=== PATIENT | female | born 1950 | race Caucasian/White ===

== ENCOUNTER 2020-10-30 12:37 | Emergency (ER) | payer OTHER ==
--- OUTSIDE RECORDS SUMMARY | 2020-10-30 12:41 | XMS REPORT | Continuity of Care Document ---
:1950 Author Organization [facility] t Address [address] [place] [place] [address] Care Team Providers Name Role Phone Margaret LINARES, Gene Attending Clinician 1, Lab Attending Clinician Unavailable Payers Payer Name Policy Type Policy Number Effective Date Expiration Date S ource Problems This patient has no known problems. Allergies, Adverse Reactions, Alerts Allergy Allergy Status Severity Reaction(s) Onset Inactive Treating Comm ents Source Name Type Date Date Clinician Quinolon DA Active [facility] es 12-14 [place] 00:00: d 00 [facility] peanut FA Active [place] [facility] 12-14 [place] 00:00: d 00 [facility] grapefru FA Active [facility] it 12-14 [place] 00:00: d 00 [facility] ciproflo DA Active [facility] xacin 12-14 [place] 00:00: d 00 [facility] amoxicil DA Active [facility] raymundo 12-14 [place] 00:00: d 00 [facility] tea tree DA Active [facility] 12-14 [place] 00:00: d 00 [facility] strawber FA Active [facility] ry 12-14 [place] 00:[facility]: d [facility] red dye FA Active [facility] 12-14 [place] 00:00: d 00 [facility] yellow FA Active [facility] dye 12-14 [place] 00:00: d 00 [facility] pecan FA Active [place] [facility] nut 12-14 [place] 00:00: d 00 [facility] Medications This patient has no known medications. Procedures This patient has no known procedures. Encounters Start End Encounter Admission Attending Care Care Encounter Source Date/Time Date/Time Type Type Clinicians Facility Department ID 2019-02-27 2019-02-27 [facility] [id number] 10:33:52 23:59:00 Encounter Selwyn Duran [id number] [place] [id number] [place] [id number] 2019-02-27 2019-02-27 [employer] 1, Adc Lab [facility] [id number] 10:38:02 10:53:02 Visit Roger [id number] [place] [id number] [place] [id number] 2019-02-04 2019-02-04 [facility] [id number] 10:08:52 12:00:03 Visit Selwyn Duran [id number] [place] [id number] [facility] [phone] [facility] 092 Building Results Test Description Test Time Test Comments Results Result [facility] e Comments - CT NECK 2019-07-15 Name: CATE ROB W/CONTRAST 13:56:00 MANE COOK Dent : 1950 Age/S: 68 / F [address] Unit #: [id number] Loc: [place] [address] Phys: Ray Fierro III, MD Acct: [id number] Dis Date: Status: REG CLI PHONE #: [phone] Exam Date: 07/15/2019923 FAX #: Reason: NECK SWELLING EXAMS: CPT: [id number] CT NECK W/CONTRAST 42112 HISTORY: Neck swelling TECHNIQUE: Axial tomograms and neck were obtained after intravenous contrast.. One or more of the following dose reduction techniques were used: Automated exposure control, adjustment of the mA and/or kV according to patient size, and/or utilization of iterative reconstruction technique. Location: C3 FINDINGS: The visualized aerodigestive tract is within normal limits. No peritonsillar or parapharyngeal mass or fluid collection. The parotid glands and submandibular glands are unremarkable. Scattered small lymph nodes are demonstrated bilaterally without significant adenopathy. Postoperative changes and degenerative changes of the spine are noted. The visualized intracranial structures and lung apices show no acute abnormalities. Visualized orbits and paranasal sinuses demonstrate no acute abnormalities. IMPRESSION: 1. No soft tissue mass or fluid collection. No other acute abnormality identified. at 0975 Reported and signed by: Jose Juan Don M.D. CC: Ray Fierro III, MD Technologist:Ami Bae, RT(R)(CT); Kri CTDI: DLP: Trnscb Date/Time: 07/15/2019 (5065) [id number] Orig Print D/T: S: 07/15/2019 (4179) PAGE 1 Signed Report BLOOD UREA NITROGEN 2019-07-15 08:52:00 Test Item Value Reference Range Interpretation Comme nts BLOOD UREA NITROGEN (test code = BUN) 17 MG/DL 7-18 N [id number] 08:52:00 Test Item Value Reference Range Interpretation Comments CREATININE (test code = CREAT) 0.8 MG/DL 0.6-1.0 N
[2020-10-30] MEDS ORDERED: LEVALBUTEROL 1.25 MG/3 ML NEB ONE (13:40)
--- NOTE | 2020-10-30 14:20 | RAD REPORT ---
EXAM DESCRIPTION: Halie Single View10/30/2020 2:04 pm CLINICAL HISTORY: Cough COMPARISON: 2007 FINDINGS: The lungs appear clear of acute infiltrate. The heart is normal size IMPRESSION: No acute abnormalities displayed
[2020-10-30 14:50] LABS: SARS-COV-2 RT PCR NEGATIVE (NEGATIVE)
--- NOTE | 2020-10-30 15:54 | EDPHYS ---
Physician Documentation [facility] Name: Ryanne Jo Age: 70 yrs Sex: Female : 1950 Arrival Date: 10/30/2020 Time: 12:40 Bed 20 Private MD: Keven Mena V ED Physician Sotero Lala HPI: 10/30 13:05 This 70 yrs old Female presents to ER via Ambulatory with complaints of jmm Cough, Breathing Difficulty, Sore Throat, Ear Pain, Sinus Congestion. 13:05 The patient or guardian reports cough. Onset: The symptoms/episode began/occurred jmm gradually, 1 week(s) ago. Modifying factors: The symptoms are alleviated by nothing, the symptoms are aggravated by nothing. This is a 70 year old female with a history of htn, dm, hlp that presents to the ED with complaints of cough, congestion beginning approx 1 week ago. Symptoms not alleviated with azithromycin. Patient denies fever, but has had some episodes of shortness of breath. . Historical: - Allergies: 12:49 Amoxicillin; aa5 12:49 Cipro PO; aa5 12:49 Quinolones; aa5 - PMHx: 12:49 Hypertension; Diabetes - NIDDM; Hyperlipidemia; aa5 - PSHx: 12:49 ; Cholecystectomy; aa5 - Immunization history:: Client reports receiving the 2nd dose of the Covid vaccine, Date received: August 2020. - Social history:: Smoking status: Patient denies any tobacco usage or history of. ROS: 13:05 Constitutional: Positive for body aches. jmm 13:05 Respiratory: Positive for cough. 13:05 All other systems are negative. Exam: 13:05 Constitutional: This is a well developed, well nourished patient who is awake, alert, jmm and in no acute distress. Head/Face: atraumatic. Eyes: EOMI, no conjunctival erythema appreciated ENT: Moist Mucus Membranes Neck: Trachea midline, Supple Chest/axilla: Normal chest wall appearance and motion. Cardiovascular: Regular rate and rhythm. No edema appreciated Respiratory: Normal respirations, no respiratory distress appreciated Abdomen/GI: Non distended, soft Back: Normal ROM Skin: General appearance color normal MS/ Extremity: Moves all extremities, no obvious deformities appreciated, no edema noted to the lower extremities Neuro: Awake and alert, normal gait Psych: Behavior is normal, Mood is normal, Patient is cooperative and pleasant Vital Signs: 12:45 BP 154 / 72; Pulse 80; Resp 18 S; Temp 98.3(TE); Pulse Ox 98% on R/A; Weight 95.71 kg aa5 (R); Height 5 ft. 2 in. (157.48 cm) (R); 13:33 BP 139 / 60; Pulse 67; Resp 16; Pulse Ox 99% on R/A; zb 14:38 BP 149 / 74; Pulse 80; Resp 18; Pulse Ox 99% on R/A; zb 16:04 BP 150 / 64; Pulse 79; Resp 16; Pulse Ox 99% on R/A; zb 12:45 Body Mass Index 38.59 (95.71 kg, 157.48 cm) aa5 MDM: 13:05 Patient medically screened. genet 15:52 Data reviewed: vital signs, nurses notes. Counseling: I had a detailed discussion with eliane the patient and/or guardian regarding: the historical points, exam findings, and any diagnostic results supporting the discharge/admit diagnosis, lab results, radiology results, the need for outpatient follow up, to return to the emergency department if symptoms worsen or persist or if there are any questions or concerns that arise at home. ED course: Patient is alert and non toxic in appearance in the ED. No signs of resp distress. Patient advised to follow up with PCP and otherwise given strict return precautions. patient understood and agrees with the plan of care. . 10/30 13:10 Order name: Flu [facility] 10/30 13:13 Order name: Strep; Complete Time: 14:43 [facility] 10/30 14:37 Order name: Throat Culture [facility] 10/30 14:50 Order name: COVID-19/FLU A+B; Complete Time: 14:51 [facility] 10/30 13:10 Order name: Chest Single View XRAY; Complete Time: 14:43 [facility] Administered Medications: 13:27 Drug: Xopenex (levalbuterol) (3) 1.25 mg Route: Inhalation; zb 15:14 Follow up: Response: No adverse reaction; Marked relief of symptoms zb Disposition: 10/31 06:58 Co-signature as Attending Physician, Sotero Lala MD I agree with the assessment and [facility] plan of care. Disposition: 10/30/20 15:53 Discharged to Home. Impression: Acute bronchitis. - Condition is Stable. - Discharge Instructions: Acute Bronchitis, Adult. - Prescriptions for Prednisone 20 mg Oral Tablet - take 3 tablet by ORAL route once daily for 5 days; 15 tablet. Albuterol Sulfate 90 mcg/actuation - inhale 1-2 puff by INHALATION route every 4-6 hours; 1 Inhaler. - Work release form, Medication Reconciliation Form, Thank You Letter, Antibiotic Education, Prescription Opioid Use form. - Follow up: Keven Mena MD; When: 2 - 3 days; Reason: Recheck today's complaints, Continuance of care, Re-evaluation by your physician. Signatures: Dispatcher [employer] [facility] Sotero Lala MD MD cha Mickail, Joel, PA PA jmm Calderon, Audri, RN RN aa5 Guerita Andino RN RN zb Corrections: (The following items were deleted from the chart) 10/30 14:09 13:11 Influenza Screen (A ordered. [facility] 16:04 15:53 10/30/2020 15:53 Discharged to Home. Impression: Acute bronchitis. Condition is zb Stable. Forms are Medication Reconciliation Form, Thank You Letter, Antibiotic Education, Prescription Opioid Use. Follow up: Keven Mena; When: 2 - 3 days; Reason: Recheck today's complaints, Continuance of care, Re-evaluation by your physician. eliane
--- NOTE | 2020-10-30 15:54 | ER ---
Nurse's Notes [facility] Name: Ryanne Jo Age: 70 yrs Sex: Female : 1950 Arrival Date: 10/30/2020 Time: 12:40 Bed 20 Private MD: Keven Mena V Diagnosis: Acute bronchitis Presentation: 10/30 12:45 Chief complaint: Patient states: cough and congestion since Sunday. Pt reports SOB on aa5 exertion. Pt denies nausea/vomiting/diarrhea. Pt reports she was taking Zithromax per Dr. Mena but it was making her stomach hurt so she stopped taking it. Coronavirus screen: congestion, cough unrelated to allergies. Ebola Screen: Patient negative for fever greater than or equal to 101.5 degrees Fahrenheit, and additional compatible Ebola Virus Disease symptoms. Initial Sepsis Screen: Does the patient meet any 2 criteria? No. Patient's initial sepsis screen is negative. Does the patient have a suspected source of infection? Yes: Productive cough/pneumonia. Risk Assessment: Do you want to hurt yourself or someone else? Patient reports no desire to harm self or others. Onset of symptoms was October 2020. 12:45 Acuity: ALEIDA 3 aa5 12:45 Method Of Arrival: Ambulatory aa5 Triage Assessment: 13:32 General: Appears in no apparent distress. Respiratory: Onset: The symptoms/episode zb began/occurred Sunday , the patient has mild shortness of breath. Historical: - Allergies: 12:49 Amoxicillin; aa5 12:49 Cipro PO; aa5 12:49 Quinolones; aa5 - PMHx: 12:49 Hypertension; Diabetes - NIDDM; Hyperlipidemia; aa5 - PSHx: 12:49 ; Cholecystectomy; aa5 - Immunization history:: Client reports receiving the 2nd dose of the Covid vaccine, Date received: August 2020. - Social history:: Smoking status: Patient denies any tobacco usage or history of. Screenin:29 Abuse screen: Denies threats or abuse. Denies injuries from another. Nutritional zb screening: No deficits noted. Tuberculosis screening: No symptoms or risk factors identified. Fall Risk None identified. Assessment: 13:29 General: Appears in no apparent distress. Behavior is calm, cooperative, appropriate zb for age, Reports feeling ill for > 3 days, Denies fever, fatigue. Pain: Complains of pain in chest Pain does not radiate. Quality of pain is described as burning. Cardiovascular: Reports None Heart tones S1 S2 Capillary refill < 3 seconds Patient's skin is warm and dry. Rhythm is regular. Respiratory: Reports shortness of breath cough that is productive, hacking, persistent pain with cough. Respiratory: Airway is patent Respiratory effort is even, unlabored, Respiratory pattern is regular. GI: No deficits noted. Derm: Skin is intact, is healthy with good turgor, Skin is dry, Skin is pale, Skin temperature is warm. Musculoskeletal: Circulation, motion, and sensation intact. Range of motion: intact in all extremities. 14:38 Reassessment: Patient appears in no apparent distress at this time. Patient and/or zb family updated on plan of care and expected duration. Pain level reassessed. Patient is alert, oriented x 3, equal unlabored respirations, skin warm/dry/pink. neb tx completed. pain lying on bed awaiting results. 15:30 Reassessment: Patient appears in no apparent distress at this time. Patient and/or zb family updated on plan of care and expected duration. Pain level reassessed. Patient is alert, oriented x 3, equal unlabored respirations, skin warm/dry/pink. 16:02 Respiratory: Breath sounds are clear. zb 16:03 Reassessment: Patient appears in no apparent distress at this time. Patient and/or zb family updated on plan of care and expected duration. Pain level reassessed. Patient is alert, oriented x 3, equal unlabored respirations, skin warm/dry/pink. d/c instructions given no changes at this time. gait even and steady. Vital Signs: 12:45 BP 154 / 72; Pulse 80; Resp 18 S; Temp 98.3(TE); Pulse Ox 98% on R/A; Weight 95.71 kg aa5 (R); Height 5 ft. 2 in. (157.48 cm) (R); 13:33 BP 139 / 60; Pulse 67; Resp 16; Pulse Ox 99% on R/A; zb 14:38 BP 149 / 74; Pulse 80; Resp 18; Pulse Ox 99% on R/A; zb 16:04 BP 150 / 64; Pulse 79; Resp 16; Pulse Ox 99% on R/A; zb 12:45 Body Mass Index 38.59 (95.71 kg, 157.48 cm) aa5 ED Course: 12:40 Patient arrived in ED. am2 12:41 Keven Mena MD is Private Physician. am2 12:45 Arm band placed on. aa5 12:47 Triage completed. aa5 12:59 Jero Anaya PA is PHCP. jmm 12:59 Sotero Lala MD is Attending Physician. jmm 13:17 Guerita Andino, JAY is Primary Nurse. zb 13:32 Patient has correct armband on for positive identification. Placed in gown. Bed in low zb position. Call light in reach. Side rails up X 1. Pulse ox on. NIBP on. Door closed. Noise minimized. 14:04 Chest Single View XRAY In Process Unspecified. EDMS 15:53 Keven Mena MD is Referral Physician. jmm 16:02 No provider procedures requiring assistance completed. Patient did not have IV access zb during this emergency room visit. Administered Medications: 13:27 Drug: Xopenex (levalbuterol) (3) 1.25 mg Route: Inhalation; zb 15:14 Follow up: Response: No adverse reaction; Marked relief of symptoms zb Outcome: 15:53 Discharge ordered by . jmm 16:02 Discharged to home ambulatory. zb 16:02 Condition: stable 16:02 Discharge instructions given to patient, Instructed on discharge instructions, follow up and referral plans. medication usage, Demonstrated understanding of instructions, follow-up care, medications, Prescriptions given X 2. 16:04 Patient left the ED. zb Signatures: Dispatcher [employer] EDMS Jero Anaya PA PA Tiesha Hoffman, RN RN aa5 Gila Rivera am2 Guerita Andino, JAY RN zb Corrections: (The following items were deleted from the chart) 12:48 12:45 Chief complaint: Patient states: cough and congestion since Sunday. Pt reports aa5 SOB on exertion. Pt denies nausea/vomiting/diarrhea. aa5
[2020-10-30 16:27] VITALS: TEMP 98.3
[2020-10-30 16:28] VITALS: O2SAT 99
[2020-10-30 16:31] VITALS: BP 150/64
== END 2020-10-30 16:04 | disposition home or self-care (01) ==
LOC: ER 12:37
DX: J20.9 Acute bronchitis, unspecified (principal); I10 Essential (primary) hypertension; Z88.1 Allergy status to other antibiotic agents; Z88.5 Allergy status to narcotic agent
CPT/HCPCS: 87070; 87081; 0240U; 71045; 99284

== ENCOUNTER 2021-10-20 05:43 | Observation (INO) | payer OTHER ==
--- NOTE | 2021-10-17 14:53 | RAD REPORT ---
EXAM DESCRIPTION: RAD - Chest Pa And Lat (2 Views) - 10/17/2021 2:47 pm CLINICAL HISTORY: Pre op pending ankle surgery, hypertension COMPARISON: Two view chest 02/23/2021 TECHNIQUE: Frontal and lateral views of the chest were obtained. FINDINGS: The lungs are clear of acute finding. Chronic interstitial lung pattern matches comparison . No acute failure or volume overload suspected. Heart size is normal and central vasculature is wi thin normal limits. No pleural effusion or pneumothorax seen. No acute bone finding. Lower cervical fusion hardware noted. No aortic abnormality. IMPRESSION: No acute cardiopulmonary process. No significant change from comparison study.
[2021-10-17 15:30] LABS: Protime INR 1.04
--- NOTE | 2021-10-18 10:52 | EKG ---
Test Date: 2021-10-17 Test Time: 13:29:38 [employer]ter Orchid: FAYE MEASUREMENT RESULTS: Intervals: Rate: 64 PA: 174 QRSD: 82 QT: 428 QTc: 441 [place]: P: 38 PA: 174 QRS: -4 T: 38 INTERPRETIVE STATEMENTS: Normal sinus rhythm Inferior infarct, age undetermined Cannot rule out Anterior infarct, age undetermined Abnormal ECG Compared to ECG 08/10/2016 23:59:03 Myocardial infarct finding now present Sinus arrhythmia no longer present Electronically Signed On 10-18-21 10:50:21 CDT by Simon Monet
[2021-10-20] MEDS ORDERED: NA CHLORIDE 0.9% 1,000 ML ONE (05:54)
[2021-10-20] MEDS ORDERED: dexAMETHasone 10 MG/ML VIAL ONE (06:05)
[2021-10-20] MEDS ORDERED: FENTANYL CITR 100 MCG/2 ML ONE (06:05)
[2021-10-20] MEDS ORDERED: BUPIVACAINE 0.5% Inj,MDV 50 mL VIAL ONE (06:05)
[2021-10-20] MEDS ORDERED: BUPIVACAINE 0.25% PF 10 ML VIAL ONE (06:05)
[2021-10-20] MEDS ORDERED: LIDOCAINE 1% MPF 5 ML VIAL ONE (06:05)
[2021-10-20] MEDS ORDERED: MIDAZOLAM HCL 2 MG/2 ML INJ ONE (06:05)
[2021-10-20] MEDS ORDERED: CEFAZOLIN/SWI 2gm 0 GM/0 ML SYR ONE (07:12)
[2021-10-20] MEDS ORDERED: LIDOCAINE 2% MPF 5 ML VIAL ONE (07:25)
[2021-10-20] MEDS ORDERED: propofoL 200 MG/20 ML VIAL IV ONE (07:25)
[2021-10-20] MEDS ORDERED: BUPIVACAINE 0.5% PF 10 ML VIAL ONE (07:29)
[2021-10-20] MEDS ORDERED: ONDANSETRON 4 MG/2 ML VIAL ONE (07:53)
[2021-10-20] MEDS ORDERED: dexAMETHasone 4 MG/ML VIAL ONE (07:53)
[2021-10-20] MEDS ORDERED: CLINDAMYCIN INJ 600 MG in NA CHLORIDE 0.9% 50 ML IV ONE (08:00)
[2021-10-20] MEDS ORDERED: EPHEDRINE SULF 50 MG/ML VIAL ONE (08:21)
--- NOTE | 2021-10-20 09:05 | P.BOP ---
Preoperative diagnosis: left bimalleolar ankle fracture Postoperative diagnosis: ORIF left lateral malleolus fracture Primary procedure: closed treatment left posterior malleolus fracture Test Manager: NONE,NONE Estimated blood loss: 5 cc Specimen: none Findings: see dictation Anesthesia: General Complications: None Implants: Acumed distal fibular anatomic locking plate Fluids & blood products: per anesthesia record; TT: 48 mins @ 300 mmHg Transferred to: Recovery Room Condition: Good
[2021-10-20] MEDS ORDERED: DOCUSATE NA 100 MG CAP PO PRN (09:07)
[2021-10-20] MEDS ORDERED: TRAMADOL HCL 50 MG TAB PO PRN (09:07)
[2021-10-20] MEDS ORDERED: HYDROCODONE/APAP 7.5/325 MG TAB PO PRN (09:07)
[2021-10-20] MEDS ORDERED: ONDANSETRON 4 MG/2 ML VIAL IV PRN (09:07)
[2021-10-20 09:56] LABS: Hematocrit 43.5 % (36.0-45.0)
--- NOTE | 2021-10-20 09:58 | RAD REPORT ---
EXAM DESCRIPTION: RAD - Ankle Left 2 View - 10/20/2021 9:39 am CLINICAL HISTORY: Left ankle pain FINDINGS: Sideplate and screws affix a distal fibular fracture. The third screw from the top does not enter the sideplate. It is uncertain if it has become dislodged and should be correlated with surgical history. No dislocation
--- OUTSIDE RECORDS SUMMARY | 2021-10-20 10:23 | XMS REPORT | Continuity of Care Document ---
:1950 Author Organization [facility] t Address [address] [place] [address] Care Team Providers Name Role Phone Trina Allen Primary Care Physician Jonah Fierro Attending Clinician Unavailable Therapy, Covid Infusion Attending Clinician Unavailable Ana Rosa LINARES, H Attending Clinician Jonah OSEGUERA Attending Clinician Unavailable Doctor Unassigned, Name Attending Clinician Unavailable Juan RN, E Attending Clinician Unavailable TIANA Attending Clinician Unavailable Tiana ECHEVERRIA Attending Clinician Oliverio LINARES Attending Clinician Margaret LINARES, Gene Attending Clinician 1, Lab Attending Clinician Unavailable KNOW Admitting Clinician Unavailable Payers Payer Name Policy Type Policy Number Effective Date Expiration Date S ource Problems Condition Condition Condition Status Onset Resolution Last Treating Co mments Source Name Details Category Date Date Treatment Clinician Date No known No known Disease Unive rs active active ity of problems problems [facility] Allergies, Adverse Reactions, Alerts Allergy Allergy Status Severity Reaction(s) Onset Inactive Treating Comm ents Source Name Type Date Date Clinician TREE Food Active ITCHING 2019-0 Univers NUTS 8-20 ity of 00:00: [address] PENICILL DRUG Active Rash 2019-0 Univers IN INGREDI 8-20 ity of 00:00: [address] QUINOLON Drug Active Rash 2018-0 Univers ES Class 8-20 ity of 00:00: [place] 00 [facility] STRAWBER DRUG Active ITCHING 2019-0 Univers RY INGREDI 8-20 ity of 00:00: [place] 00 [facility] Ciproflo Propensi Active Rash 2019-0 Univer s xacin ty to 8-20 ity of adverse 00:00: [place] reaction 00 Medical s Branch Grapefru Propensi Active Itching 2019-0 Unive rs it ty to 8-20 ity of adverse 00:00: [place] reaction 00 Medical s Branch Peanut Propensi Active Itching 2019-0 Univers ty to 8-20 ity of adverse 00:00: [place] reaction 00 Medical s Branch Tree Propensi Active Itching 2019-0 Univers Nuts ty to 8-20 ity of adverse 00:00: [place] reaction 00 Medical s Branch Penicill Propensi Active Rash 2019-0 Univer s in ty to 8-20 ity of adverse 00:00: [place] reaction 00 Medical s Branch Quinolon Propensi Active Rash 2019-0 Univer s es ty to 8-20 ity of adverse 00:00: [place] reaction 00 Medical s Branch Strawber Propensi Active Itching 2019-0 Unive rs ry ty to 8-20 ity of adverse 00:00: [place] reaction 00 Medical s Branch CIPROFLO DRUG Active Rash 2019-0 Univers XACIN INGREDI 8-20 ity of 00:00: [place] 00 [facility] GRAPEFRU DRUG Active ITCHING 2019-0 Univers IT INGREDI 8-20 ity of 00:00: [place] 00 [facility] PEANUT DRUG Active ITCHING 2019-0 Univers INGREDI 8-20 ity of 00:00: [place] 00 [facility] Quinolon DA Active CA 0 [facility] es 12-14 [place] 00:00: d 00 [facility] [place] peanut FA Active MO [facility] 12-14 [place] 00:00: d 00 [facility] grapefru FA Active MO [facility] it 12-14 [place] 00:00: d 00 [facility] ciproflo DA Active CA [facility] xacin 12-14 [place] 00:00: d 00 [facility] amoxicil DA Active CA [facility] raymundo 12-14 [place] 00:00: d 00 [facility] tea tree DA Active MO [facility] 12-14 [place] 00:00: d 00 [facility] strawber FA Active MO [facility] ry 12-14 [place] 00:[facility]: d [facility] red dye FA Active U [facility] 6-29 [place] 00:00: d 00 [facility] yellow FA Active U [facility] dye 6-29 [place] 00:00: d 00 [facility] pecan FA Active MO [facility] nut 6-29 [place] 00:00: d 00 [facility] yellow FA Active U ITCHING, [facility] dye FEELS LIKE 6-29 [place] SKIN 00:00: d CRAWLING 00 [facility] pecan FA Active MO ITCHING, [facility] nut FEELS LIKE 6-29 [place] SKIN 00:00: d CRAWLING 00 [facility] Quinolon DA Active CA RED STREAKS; 2017 HC A es HOT FEELING; 6-29 [place] trisha SKIN CRAWLS 00:00: d 00 [facility] peanut FA Active MO LIP NUMBNESS [facility] 6-29 [place] 00:00: d 00 [facility] grapefru FA Active MO ITCHING, [facility] it FEELS LIKE 6-29 [place] SKIN 00:00: d CRAWLING [facility] ciproflo DA Active CA RED STREAKS; HC A xacin HOT FEELING; 6-29 [place] trisha SKIN CRAWLS 00:00: d 00 [facility] amoxicil DA Active CA RED STREAKS; HC A raymundo HOT FEELING; 6-29 [place]isha SKIN CRAWLS 00:00: d 00 [facility] tea tree DA Active MO ITCHING, [facility] FEELS LIKE 6-29 [place] SKIN 00:00: d CRAWLING [facility] strawber FA Active MO ITCHING, [facility] ry FEELS LIKE 6-29 [place] SKIN 00:00: d CRAWLING [facility] red dye FA Active U ITCHING, [facility] FEELS LIKE 6-29 [place] SKIN 00:00: d CRAWLING 00 [facility] Social History Social Habit Start Date Stop Date Quantity Comments Source Exposure to Yes University SARS-CoV-2 [facility] (event) Branch Alcohol intake 2021-06-16 2021-06-16 Ex-drinker University of 00:00:00 00:00:00 (finding) [facility] Tobacco use and 2019-02-04 2019-02-04 Never used Universit y of exposure 00:00:00 00:00:00 [facility] Sex Ass[birth year] [facility] y of 00:00:00 00:00:00 [facility] Smoking Status Start Date Stop Date Source Never smoker [facility] Medications Ordered Filled Start Stop Current Ordering Indication Dosage Frequency Signature Comments Components Source Medication Medication Date Date Medication? Clinician (SIG) Name Name amLODIPine Yes 5mg Take 5 mg Un otf 5 mg tablet 8-20 by mouth ity of 11:58: daily. [address] metFORMIN 2019- Yes 500mg Take 500 Uni vers 500 mg 8-20 mg by ity of tablet 11:58: mouth [place] [address] every 12 Medical (twelve) Branch hours. Omeprazole Yes Take by Uni vers 20 mg 8-20 mouth. ity of tablet 11:58: [address] Cetirizine Yes Take by Uni vers (ZYRTEC) 10 8-20 mouth. ity of mg capsule 11:58: [address] amLODIPine Yes 5mg Take 5 mg Un otf 5 mg tablet 8-20 by mouth ity of 11:58: daily. [address] metFORMIN Yes 500mg Take 500 Uni vers 500 mg 8-20 mg by ity of tablet 11:58: mouth [place] [address] every 12 Medical (twelve) Branch hours. Omeprazole Yes Take by Uni vers 20 mg 8-20 mouth. ity of tablet 11:58: [address] Cetirizine Yes Take by Uni vers (ZYRTEC) 10 8-20 mouth. ity of mg capsule 11:58: [address] amLODIPine Yes 5mg Take 5 mg Un otf 5 mg tablet 8-20 by mouth ity of 11:58: daily. [address] metFORMIN Yes 500mg Take 500 Uni vers 500 mg 8-20 mg by ity of tablet 11:58: mouth [place] [address] every 12 Medical (twelve) Branch hours. Omeprazole 2018- Yes Take by Uni vers 20 mg 8-20 mouth. ity of tablet 11:58: [address] Cetirizine Yes Take by Uni vers (ZYRTEC) 10 8-20 mouth. ity of mg capsule 11:58: [address] amLODIPine 2018- Yes 5mg Take 5 mg Un otf 5 mg tablet 8-20 by mouth ity of 11:58: daily. [place] [address] Medical Branch metFORMIN 2019- Yes 500mg Take 500 Uni vers 500 mg 8-20 mg by ity of tablet 11:58: mouth [place] [address] every 12 Medical (twelve) Branch hours. Omeprazole Yes Take by Uni vers 20 mg 8-20 mouth. ity of tablet 11:58: [address] Branch Cetirizine Yes Take by Uni vers (ZYRTEC) 10 8-20 mouth. ity of mg capsule 11:58: [address] Branch buPROPion Yes 150mg Take 150 Uni vers 75 mg 8-20 mg by ity of tablet 11:58: mouth. [address] Branch PARoxetine Yes 40mg Take 40 mg U nivers 40 mg 8-20 by mouth ity of tablet 11:58: daily. [address] Branch atorvastati Yes 20mg Take 20 mg Univers n 20 mg 8-20 by mouth ity of tablet 11:58: at [place] [address] bedtime. [facility] Branch spironolact Yes 25mg Take 25 mg Univers one 25 mg 8-20 by mouth ity of tablet 11:58: daily. [address] Branch buPROPion Yes 150mg Take 150 Uni vers 75 mg 8-20 mg by ity of tablet 11:58: mouth. [address] Branch PARoxetine Yes 40mg Take 40 mg U nivers 40 mg 8-20 by mouth ity of tablet 11:58: daily. [address] Branch atorvastati Yes 20mg Take 20 mg Univers n 20 mg 8-20 by mouth ity of tablet 11:58: at [place] [address] bedtime. [facility] Branch spironolact Yes 25mg Take 25 mg Univers one 25 mg 8-20 by mouth ity of tablet 11:58: daily. [address] Branch buPROPion Yes 150mg Take 150 Uni vers 75 mg 8-20 mg by ity of tablet 11:58: mouth. [address] Branch PARoxetine Yes 40mg Take 40 mg U nivers 40 mg 8-20 by mouth ity of tablet 11:58: daily. [address] Branch atorvastati Yes 20mg Take 20 mg Univers n 20 mg 8-20 by mouth ity of tablet 11:58: at [place] 08 bedtime. Medical Branch spironolact 2019-0 Yes 25mg Take 25 mg Univers one 25 mg 8-20 by mouth ity of tablet 11:58: daily. [place] [address] Medical Branch buPROPion 2019-0 Yes 150mg Take 150 Uni vers 75 mg 8-20 mg by ity of tablet 11:58: mouth. [place] [address] Medical Branch PARoxetine 2018-0 Yes 40mg Take 40 mg U nivers 40 mg 8-20 by mouth ity of tablet 11:58: daily. [place] [address] Medical Branch atorvastati 2019-0 Yes 20mg Take 20 mg Univers n 20 mg 8-20 by mouth ity of tablet 11:58: at [place] 08 bedtime. Medical Branch spironolact Yes 25mg Take 25 mg Univers one 25 mg 8-20 by mouth ity of tablet 11:58: daily. [place] [address] Medical Branch amitriptyli Yes [id number] 50mg Take 1 Univers ne 50 mg 8-20 tablet by ity of tablet 00:00: mouth at [place] 00 bedtime. Medical Branch erenumab-ao Yes 140mg inject 140 Univers oe (AIMOVIG 8-20 mg under ity of AUTOINJECTO 00:00: [place] R) 140 00 once every Medical mg/mL AtIn month. Branch amitriptyli Yes [id number] 50mg Take 1 Univers ne 50 mg 8-20 tablet by ity of tablet 00:00: mouth at [place] 00 bedtime. Medical Branch erenumab-ao Yes 140mg inject 140 Univers oe (AIMOVIG 8-20 mg under ity of AUTOINJECTO 00:00: the [place] R) 140 00 once every Medical mg/mL AtIn month. Branch amitriptyli 0 Yes [id number] 50mg Take 1 Univers ne 50 mg 8-20 tablet by ity of tablet 00:00: mouth at [place] 00 bedtime. Medical Branch erenumab-ao 0 Yes 140mg inject 140 Univers oe (AIMOVIG 8-20 mg under ity of AUTOINJECTO 00:00: the skin [place] R) 140 00 once every Medical mg/mL AtIn month. Branch amitriptyli 0 Yes [id number] 50mg Take 1 Univers ne 50 mg 8-20 tablet by ity of tablet 00:00: mouth at [place] 00 bedtime. Medical Branch erenumab-ao 2019-0 Yes 140mg inject 140 Univers oe (AIMOVIG 8-20 mg under ity of AUTOINJECTO 00:00: the [place] R) 140 00 once every Medical mg/mL AtIn month. Branch Immunizations Ordered Filled Immunization Date Status Comments [facility] e Immunization Name Name SARS-COV-2 COVID-19 2020-09-12 Completed Unive rsity of MODERNA VACCINE 00:00:00 [facility] SARS-COV-2 COVID-19 2020-09-12 Completed Unive rsity of MODERNA VACCINE 00:00:00 [facility] SARS-COV-2 COVID-19 2020-09-12 Completed Unive rsity of MODERNA VACCINE 00:00:00 [facility] SARS-COV-2 COVID-19 2020-09-12 Completed Unive rsity of MODERNA VACCINE 00:00:00 [facility] SARS-COV-2 COVID-19 2020-08-15 Completed Unive rsity of MODERNA VACCINE 00:00:00 [facility] SARS-COV-2 COVID-19 2020-08-15 Completed Unive rsity of MODERNA VACCINE 00:00:00 [facility] SARS-COV-2 COVID-19 2020-08-15 Completed Unive rsity of MODERNA VACCINE 00:00:00 [facility] SARS-COV-2 COVID-19 2020-08-15 Completed Unive rsity of MODERNA VACCINE 00:00:00 [facility] Vital Signs Vital Name Observation Time Observation Value Comments Source Body temperature 2021-06-20 19:42:00 36.56 [facility] Res[facility] rate 2021-06-20 19:42:00 18 /min [facility] Oxygen saturation in 2021-06-20 19:42:00 98 /min [facility] Arterial blood by [facility] Pulse oximetry Branch Systolic blood 2021-06-20 19:42:00 174 mm[Hg] Univer sity of pressure [facility] Diastolic blood 2021-06-20 19:42:00 81 mm[Hg] Unive rsity of pressure [facility] Heart rate 2021-06-20 19:42:00 78 /min Universi ty [facility] Systolic blood 2021-06-17 00:15:00 141 mm[Hg] Univer sity of pressure [facility] Diastolic blood 2021-06-17 00:15:00 80 mm[Hg] Unive rsity of pressure [facility] Heart rate 2021-06-17 00:11:00 88 /min Universi ty [facility] Body temperature 2021-06-17 00:11:00 36.67 Sadie [facility] ersity of [facility] Respiratory rate 2021-06-17 00:11:00 18 /min [facility] Body height 2021-06-17 00:11:00 154.9 cm [facility] Body weight 2021-06-17 00:11:00 93.441 kg [facility] BMI 2021-06-17 00:11:00 38.92 kg/m2 [facility] Oxygen saturation in 2021-06-17 00:11:00 98 /min [facility] Arterial blood by [facility] Pulse oximetry Branch Procedures Procedure Date / Time Performed Performing Clinician Sour e CONSENT/REFUSAL FOR 2021-06-20 06:01:00 Doctor Unassigned, No Un [facility] DIAGNOSIS AND Name Medical Branch TREATMENT Encounters Start End Encounter Admission Attending Care Care Encounter Source Date/Time Date/Time Type Type Clinicians Facility Department ID 2021-08-29 Outpatient STLMLC STLMLC [id number] [address] 09:33:04 [id number] Nanci zaldivar [facility] 2019-07-15 Inpatient FRANSISCO Calderon RADI [id number] [facility] 08:30:00 Ray [id number] [facility] 2021-06-20 2021-06-20 Nurse Therapy, Clc Covid Infusion [facility] [id number] Univers 13:30:00 14:30:00 Visit Breana Oseguera [facility] [id number] ity of [place] [id number] [id number] [facility] MEDICAL 053 Branch OFFICE BUILDING 2021-06-20 2021-06-20 Outpatient Louis OSEGUERA [facility] [id number] Univers 13:30:00 13:30:00 BREANA [id number] ity of [facility] 2021-06-20 2021-06-20 Outpatient R ANA ROSA [facility] [id number] Univers 13:30:00 13:30:00 BREANA ity [facility] 2021-06-20 2021-06-20 Orders Doctor KHAN [id number] Univers 00:00:00 00:00:00 Only Unassigned, VADIM [id number] ity of [place] [facility] [id number] Abraham as [phone] [facility] 009 Branch 2021-06-18 2021-06-18 Telephone ERIN Martinez [id number] Univers 00:00:00 00:00:00 Pina FIERRO [id number] it y of [facility] [id number] Abraham as [id number] [facility] 019 [place] 2021-06-16 2021-06-16 [facility] [id number] Univers 18:20:00 19:11:56 KASSIDY ity [facility] 2021-06-16 2021-06-16 Urgent Kassidy Montiel [facility] [id number] Univers 18:20:00 19:11:56 [facility] [id number] ity of [place] [id number] Abraham as PEDRO PABLO?BLEA [phone] [place] christa HALLEY [address] [place] [address] MEDICAL OFFICE BUILDING 2021-06-16 2021-06-16 Outpatient R [facility] [id number] Univers 18:20:00 18:20:00 [id number] ity of [facility] 2020-09-12 2020-09-12 Outpatient [facility] [id number] Univers 08:40:00 08:40:00 ity of [facility] 2020-08-15 2020-08-15 Outpatient [facility] [id number] Univers 08:15:00 08:15:00 ity [facility] 2019-07-09 2019-07-09 [facility] [id number] [facility] 08:30:00 08:30:00 Ray [id number] [facility] 2019-02-27 2019-02-27 [facility] [id number] 10:33:52 23:59:00 Encounter Selwyn Gonzalez [id number] [place] [id number] [place] [id number] 2019-02-27 2019-02-27 [employer] 1, Adc Lab [facility] [id number] 10:38:02 10:53:02 Visit Roger [id number] [place] [id number] [place] [id number] [id number] 2019-02-04 2019-02-04 Office Margaret [facility] [id number] 10:08:52 12:00:03 Visit Selwyn Gonzalez [id number] [place] [id number] Professio [phone] [facility] 092 Building Results Test Description Test Time Test Comments Results Result [facility] e Comments - CT NECK 2019-07-15 Name: CATE ROB W[facility]CONTRAST 13:56:[facility] 1950 Age/S: 68 / F [id number] [address] [place] Unit #: [id number] Loc: [place] [address] Phys: Ray Fierro III, MD Acct: [id number] Dis Date: Status: REG CLI PHONE #: [phone] Exam Date: 07/15/2019923 FAX #: Reason: NECK SWELLING EXAMS: CPT: [id number] CT NECK W/CONTRAST 96401 HISTORY: Neck swelling TECHNIQUE: Axial tomograms and [...] collection. No other acute abnormality identified. at 6181 Reported and signed by: Jose Juan Don M.D. CC: Ray Fierro III, MD Technologist:Ami Bae, RT(R)(CT); [facility] CTDI: DLP: Trnscb Date/Time: 07/15/2019 (1115) [email or web address] Orig Print D/T: S: 07/15/2019 (0451) PAGE 1 Signed Report BLOOD UREA NITROGEN 2019-07-15 08:52:00 Test Item Value Reference Range Interpretation Comme nts BLOOD UREA NITROGEN (test code = BUN) 17 MG/DL 7-18 N [id number] 08:52:00 Test Item Value Reference Range Interpretation Comments CREATININE (test code = CREAT) 0.8 MG/DL 0.6-1.0 N
[2021-10-20 13:22] VITALS: BMI 5624.0
[2021-10-20] MEDS: TOPIRAMATE 25 MG TAB PO SCH ×2 (15:05→21:54)
--- NOTE | 2021-10-20 15:23 | RAD REPORT ---
EXAM DESCRIPTION: RAD - Fluoroscopy <1 Hour - 10/20/2021 2:10 pm CLINICAL HISTORY: ORIF COMPARISON: Ankle Left 2 View dated 10/20/2021 FINDINGS/IMPRESSION: Thirteen intraoperative fluoroscopic images were submitted showing ORIF of the distal fibula. No hardware complications are identified. Alignment is unremarkable.
[2021-10-20] MEDS ORDERED: PNEUMOCOCCAL VACCINE 0.5 ML IMVAC ONE (17:00)
[2021-10-20] MEDS ORDERED: CLINDAMYCIN INJ 600 MG in NA CHLORIDE 0.9% 50 ML IV SCH (17:00)
[2021-10-20] MEDS: CLINDAMYCIN 600MG/D5W 600 MG/50 ML BAG IV SCH (18:12)
[2021-10-20] MEDS: METFORMIN HCL 500 MG TAB PO SCH (18:13)
[2021-10-20] MEDS ORDERED: ATORVASTATIN 20 MG TAB PO SCH (21:00)
[2021-10-21] MEDS: CLINDAMYCIN 600MG/D5W 600 MG/50 ML BAG IV SCH ×2 (01:31→08:52)
[2021-10-21] MEDS: TOPIRAMATE 25 MG TAB PO SCH (08:52)
[2021-10-21] MEDS: METFORMIN HCL 500 MG TAB PO SCH (08:53)
[2021-10-21 08:54] VITALS: BP 145/56
[2021-10-21] MEDS ORDERED: DOXYCYCLINE MONOHYDRATE 50 MG PO SCH (09:00)
[2021-10-21] MEDS ORDERED: ASPIRIN EC 81 MG TAB PO SCH (09:00)
[2021-10-21] MEDS ORDERED: SPIRONOLACTONE 25 MG TABLET PO SCH (09:00)
[2021-10-21] MEDS ORDERED: PARoxetine HCL 10 MG TAB PO SCH (09:00)
[2021-10-21] MEDS ORDERED: CETIRIZINE HCL 5 MG TABLET PO SCH (09:00)
[2021-10-21] MEDS ORDERED: MONTELUKAST 10 MG TAB PO SCH (09:00)
[2021-10-21] MEDS ORDERED: PANTOPRAZOLE 40MG TABLET PO SCH (09:00)
[2021-10-21] MEDS ORDERED: AMLODIPINE 5 MG TAB PO SCH (09:00)
[2021-10-21 09:22] VITALS: TEMP 97.1
[2021-10-21 10:00] VITALS: O2SAT 97
--- NOTE | 2021-10-21 10:13 | P.DS ---
Admission Date: 10/20/21 Discharge Date: 10/21/21 Disposition: DC HOME/HOME HEALTH CARE Discharge Condition: GOOD Reason for Admission: s/p ORIF left lateral malleolus Procedures: ORIF left lateral malleolus on 10/20/2021 Brief History of Present Illness: Ryanne is a 71 yo female s/p ORIF left lateral malleolus on 10/20/2021 Hospital Course: Patient was admitted to the floor in stable condition. Her pain was controlled and she was discharged on 10/21/2021 in stable condition. She will be NWB on her LLE. PT will be consulted while at home to aid with mobilization. Vital Signs/Physical Exam: Temp Pulse Resp BP Pulse Ox 97.1 F 75 16 145/56 H 100 10/21/21 08:00 10/21/21 08:54 10/21/21 08:00 10/21/21 08:54 10/21/21 08:00 Laboratory Data at Discharge: Hgb 14.2 g/dL (12.0-15.0) 10/20/21 09:32 Hct 43.5 % (36.0-45.0) 10/20/21 09:32 PT 11.4 SECONDS (9.5-12.5) 10/17/21 14:55 INR 1.04 10/17/21 14:55 APTT 41.1 SECONDS (24.3-36.9) H 10/17/21 14:55 Home Medications: Aloe Vera 25 mg PO DAILY 10/17/21 Amlodipine Besylate 5 mg PO DAILY 10/17/21 Ascorbic Acid [Vitamin C*] 500 mg PO DAILY 10/17/21 Aspirin [Aspirin EC 81 MG] 81 mg PO DAILY 10/17/21 Atorvastatin Calcium [Lipitor*] 20 mg PO BEDTIME 10/17/21 Biotin 10,000 mcg PO DAILY 10/17/21 Calcium Crb,Cit/D3/Min34/Kaylyn [Citracal Plus Bone Density Tab] 1 each PO DAILY 10/17/21 Cetirizine HCl [Zyrtec] 10 mg PO BID 10/17/21 Cranberry 500 mg PO DAILY 10/17/21 Doxycycline Monohydrate 50 mg PO DAILY 10/17/21 Lactobacillus Acidophilus [Acidophilus Probiotic] 1 each PO DAILY 10/17/21 Metformin HCl [Glucophage*] 500 mg PO BID 10/17/21 Montelukast [Singulair*] 10 mg PO DAILY 10/17/21 PARoxetine HCL [Paroxetine HCl] 20 mg PO DAILY 10/17/21 Pantoprazole [Protonix Tab*] 40 mg PO DAILY 10/17/21 Spironolactone [Aldactone*] 25 mg PO DAILY 10/17/21 Topiramate 50 mg PO TID 10/17/21 Ubidecarenone [Co Q-10] 100 mg PO DAILY 10/17/21 Vit A,C & E/Lutein/Minerals [Ocuvite Tablet] 1 tab PO DAILY 10/17/21 Hydrocodone 7.5/APAP 325 [[place] 7.5/325 mg*] 1 tab PO Q4H PRN tab 10/21/21 Physician Discharge Instructions: keep splint clean, dry, intact; keep LLE elevated on 2 pillows; f/u with Dr Hoover in 2 weeks for suture removal; remain NWB on LLE at all times Diet: ADA Activity: Non-weight bearing (LLE)
--- NOTE | 2021-10-27 22:36 | OP ---
Date of Procedure: 10/20/2021 Surgeon: Renaldo Hoover MD Preoperative Diagnosis: Left bimalleolar ankle fracture. Postoperative Diagnosis: Left bimalleolar ankle fracture. Procedures Performed: Open reduction internal fixation of left lateral malleolus fracture with post treatment of posterior malleolus fracture. Anesthesia: General. Fluids: Per Anesthesia record. Ebl: 5 cc. Complications: None. Implants: An Acumed distal fibular anatomic locking plate. Tourniquet Time: 40 minutes at 300 mmHg. Indication For Procedure: Ryanne is a 71-year-old female who presented to my clinic with signs, sympto ms and x-ray findings consistent with a left bimalleolar ankle fracture. There was displacement on [facility] fracture. Given the displaced and unstable fracture pattern, I recommended operative treatment. I discussed with the patient at length risks and benefits associated with operative and nonoperative treatment. She expressed understanding and elected to proceed with operative treatment. Description Of Procedure: After informed consent was obtained, the patient was identified in the pre operative holding area. The left lower extremity was marked. The patient was then brought back to [facility] operating room, transferred to the operative table in supine fashion, and placed under general LMA anesthesia. The left lower extremity was then prepped and draped in usual sterile fashion. A time- out was initiated. The correct patient and procedure were confirmed and identified. The patient did receive her preoperative prophylactic antibiotics. The left lower extremity was exsanguinated using an Esmarch and tourniquet was inflated to 300 mmHg. Approximately, a 12 cm longitudinal incision wa s made centered over the distal fibula. Dissection was then taken down to the distal fibula using Me matamorosenbaum and an elevator. The fracture was identified and it was held reduced using a pointed reduct ion clamp and adequate reduction was noted on fluoroscopy. A single 3.5 cortical screw was then plac ed in the lag fashion across the fracture with compression noted at the fracture site. The Acumed di stal fibular anatomic locking plate was then placed on the distal fibula for further fixation. Once the proper position was confirmed with fluoroscopy, a single cancellous screw was placed distally to aid with fixation of the plate to the bone. This was followed by placement of distal fibular locking screws in unicortical fashion. There was good overall alignment of the fracture as well as maintena nce of reduction. The proximal screws were then placed in bicortical fashion with overall good align ment of the fracture as well as the hardware. Both AP and lateral images were taken to confirm reduc tion and placement of the hardware. Live fluoroscopy was then used to perform Cotton test and no ins tability of the syndesmosis was noted. The wound was then irrigated thoroughly with normal saline. Subcutaneous tissue was approximated using a 2-0 Vicryl. Skin was approximated using a 3-0 nylon. S terile dressings were applied. The patient was placed in a posterior and stirrup splint and was awak ened and transferred to PACU in stable condition. Postoperative Plan: The patient will be nonweightbearing on her left lower extremity. [place] apy will be consulted to aid with mobilization. The patient will be discharged tomorrow after demons trating safe mobilization. CV/MODL Voice ID: [id number] Report ID: [id number]
== END 2021-10-21 11:00 | disposition home health service (06) ==
LOC: OR 05:43 → 2ND 09:07
PROVIDERS: ADMIT Orthopaedic Surgery Sports Medicine; ATTEND Orthopaedic Surgery Sports Medicine
PROC: 0QSH04Z Reposition Left Tibia with Internal Fixation Device, Open Approach (ICD-10-PCS; 2021-10-20)
PROC: 0QSK04Z Reposition Left Fibula with Internal Fixation Device, Open Approach (ICD-10-PCS; principal; 2021-10-20 07:30)
DX: S82.842A Displaced bimalleolar fracture of left lower leg, initial encounter for closed fracture (principal); E11.9 Type 2 diabetes mellitus without complications; I10 Essential (primary) hypertension; E78.00 Pure hypercholesterolemia, unspecified; J45.909 Unspecified asthma, uncomplicated; M19.90 Unspecified osteoarthritis, unspecified site; K21.9 Gastro-esophageal reflux disease without esophagitis; G43.909 Migraine, unspecified, not intractable, without status migrainosus; F32.A Depression, unspecified; F41.9 Anxiety disorder, unspecified; J30.2 Other seasonal allergic rhinitis; Z20.822 Contact with and (suspected) exposure to COVID-19; Z79.82 Long term (current) use of aspirin; Z79.84 Long term (current) use of oral hypoglycemic drugs; Z79.899 Other long term (current) drug therapy; Z88.1 Allergy status to other antibiotic agents; Z88.0 Allergy status to penicillin; Z88.8 Allergy status to other drugs, medicaments and biological substances; Z91.040 Latex allergy status; Z83.3 Family history of diabetes mellitus; Z80.9 Family history of malignant neoplasm, unspecified; Z82.49 Family history of ischemic heart disease and other diseases of the circulatory system; Z83.2 Family history of diseases of the blood and blood-forming organs and certain disorders involving the immune mechanism
CPT/HCPCS: 27814; 93005; 36415 ×2; 85610; 82947 ×6; 85730; 85018; 85014; 71046; 73600; 97110 ×2; 97116; 97161; 97530; 94010; U0003; J2704; J1100 ×2; J2250; J3010; J7030; J2405; G0379; G0378 ×2; 76000; J0690

== ENCOUNTER 2022-01-08 19:23 | Emergency (ER) | payer OTHER ==
--- OUTSIDE RECORDS SUMMARY | 2022-01-08 19:27 | XMS REPORT | Continuity of Care Document ---
:1950 Author Organization [facility] t Address [address] [place] [address] Care Team Providers Name Role Phone Trina Alejandro Primary Care Physician Therapy, Covid Infusion Attending Clinician Unavailable Ana Rosa LINARES, H Attending Clinician Jonah OSEGUERA Attending Clinician Unavailable Doctor Unassigned, Name Attending Clinician Unavailable Juan THOMPSON, E Attending Clinician Unavailable TIANA Attending Clinician Unavailable Tiana ECHEVERRIA Attending Clinician Oliverio LINARES Attending Clinician Jonah Fierro Attending Clinician Unavailable Margaret LINARES, Gene Attending Clinician 1, Lab Attending Clinician Unavailable KNOW Admitting Clinician Unavailable Payers Payer Name Policy Type Policy Number Effective Date Expiration Date S ource Problems Condition Condition Condition Status Onset Resolution Last Treating Co mments Source Name Details Category Date Date Treatment Clinician Date No known No known Disease Unive rs active active ity of problems problems [facility] Allergies, Adverse Reactions, Alerts Allergy Allergy Status Severity Reaction(s) Onset Inactive Treating Comm ents Source Name Type Date Date Clinician GRAPEFRU DRUG Active ITCHING 2019-0 Univers IT INGREDI 8-20 ity of 00:00: [address] PEANUT DRUG Active ITCHING 2019-0 Univers INGREDI 8-20 ity of 00:00: [place] 00 [facility] TREE Food Active ITCHING 2019-0 Univers NUTS 8-20 ity of 00:00: [place] 00 [facility] PENICILL DRUG Active Rash 2019-0 Univers IN INGREDI 8-20 ity of 00:00: [place] 00 [facility] QUINOLON Drug Active Rash 2019-0 Univers ES Class 8-20 ity of 00:00: [...] ity of 00:00: [place] 00 [facility] grapefru FA Active MO 0 [facility] it 6- [place] 00:00: d 00 [facility] ciproflo DA Active OR 0 [facility] xacin 6- [place] 00:00: d 00 [facility] [place] amoxicil DA Active OR 2016-0 [facility] raymundo 6- [place] 00:00: d 00 [facility] [place] tea tree DA Active MO 2016-0 [facility] 6-29 [place] 00:00: d 00 [facility] strawber FA Active MO [facility] ry 6- [place] 00:00: d 00 [facility] red dye FA Active U [facility] 6 [place] 00:00: d 00 [facility] [place] yellow FA Active U [facility] dye 6-29 [place] 00:00: d 00 [facility] pecan FA Active MO [facility] nut 6-29 [place] 00:00: d 00 [facility] yellow FA Active U ITCHING, [facility] dye FEELS LIKE 6-29 [place] SKIN 00:00: d CRAWLING 00 [facility] pecan FA Active MO ITCHING, [facility] nut FEELS LIKE 6-29 [place] SKIN 00:00: d CRAWLING 00 [facility] Quinolon DA Active OR RED STREAKS; HC A es HOT FEELING; 6-29 [place] trisha SKIN CRAWLS 00:00: d 00 [facility] peanut FA Active MO LIP NUMBNESS [facility] 6-29 [place] 00:00: d 00 [facility] grapefru FA Active MO ITCHING, [facility] it FEELS LIKE 6-29 [place] SKIN 00:00: d CRAWLING 00 [facility] ciproflo DA Active OR RED STREAKS; HC A xacin HOT FEELING; 6-29 [place] trisha SKIN CRAWLS 00:00: d 00 [facility] amoxicil DA Active OR RED STREAKS; HC A raymundo HOT FEELING; 6-29 [place] trisha SKIN CRAWLS 00:00: d 00 [facility] tea tree DA Active MO ITCHING, [facility] FEELS LIKE 6-29 [place] SKIN 00:00: d CRAWLING 00 [facility] strawber FA Active MO ITCHING, [facility] ry FEELS LIKE 6-29 [place] SKIN 00:00: d CRAWLING [facility] [place] red dye FA Active U ITCHING, [facility] FEELS LIKE 6-29 [place] SKIN 00:00: d CRAWLING 00 [facility] Quinolon DA Active OR [facility] es 6-29 [place] 00:00: d 00 [facility] peanut FA Active MO [facility] 6-29 [place] 00:00: d 00 [facility] [place] Social History Social Habit Start Date Stop Date Quantity Comments Source Exposure to Yes University SARS-CoV-2 [facility] (event) Branch Alcohol intake 2021-06-16 2021-06-16 Ex-drinker University of 00:00:00 00:00:00 (finding) [place] [facility] Tobacco use and 2019-02-04 2019-02-04 Never used Universit y of exposure 00:00:00 00:00:00 [facility] Sex Ass[birth year] Universit y of 00:00:00 00:00:00 [facility] Smoking Status Start Date Stop Date Source Never smoker [facility] Medications Ordered Filled Start Stop Current Ordering Indication Dosage Frequency Signature Comments Components Source Medication Medication Date Date Medication? Clinician (SIG) Name Name amLODIPine 2019- Yes 5mg Take 5 mg Un otf 5 mg tablet 8-20 by mouth ity of 11:58: daily. [address] metFORMIN 2019- Yes 500mg Take 500 Uni vers 500 mg 8-20 mg by ity of tablet 11:58: mouth [place] [address] every 12 Medical (twelve) Branch hours. Omeprazole 2019- Yes Take by Uni vers 20 mg 8-20 mouth. ity of tablet 11:58: [address] Cetirizine Yes Take by Uni vers (ZYRTEC) 10 8-20 mouth. ity of mg capsule 11:58: [address] amLODIPine 2019- Yes 5mg Take 5 mg Un otf 5 mg tablet 8-20 by mouth ity of 11:58: daily. [address] metFORMIN 2019- Yes 500mg Take 500 Uni vers 500 mg 8-20 mg by ity of tablet 11:58: mouth [place] [address] every 12 Medical (twelve) Branch hours. Omeprazole 2018- Yes Take by Uni vers 20 mg 8-20 mouth. ity of tablet 11:58: [address] Cetirizine 2018- Yes Take by Uni vers (ZYRTEC) 10 8-20 mouth. ity of mg capsule 11:58: [address] amLODIPine 2019- Yes 5mg Take 5 mg Un otf 5 mg tablet 8-20 by mouth ity of 11:58: daily. [address] metFORMIN 2019-0 Yes 500mg Take 500 Uni vers 500 mg 8-20 mg by ity of tablet 11:58: mouth [address] 12 Medical (twelve) Branch hours. Omeprazole 2019-0 Yes Take by Uni vers 20 mg 8-20 mouth. ity of tablet 11:58: [address] Cetirizine 2019- Yes Take by Uni vers (ZYRTEC) 10 8-20 mouth. ity of mg capsule 11:58: [address] amLODIPine 2019 Yes 5mg Take 5 mg Un otf 5 mg tablet 8-20 by mouth ity of 11:58: daily. [address] Branch metFORMIN 2019-0 Yes 500mg Take 500 Uni vers 500 mg 8-20 mg by ity of tablet 11:58: mouth [place] [address] every 12 Medical (twelve) Branch hours. Omeprazole 2019 Yes Take by Uni vers 20 mg 8-20 mouth. ity of tablet 11:58: [address] Branch Cetirizine 0 Yes Take by Uni vers (ZYRTEC) 10 8-20 mouth. ity of mg capsule 11:58: [address] Branch buPROPion Yes 150mg Take 150 Uni vers 75 mg 8-20 mg by ity of tablet 11:58: mouth. [address] PARoxetine Yes 40mg Take 40 mg U nivers 40 mg 8-20 by mouth ity of tablet 11:58: daily. [address] atorvastati Yes 20mg Take 20 mg Univers n 20 mg 8-20 by mouth ity of tablet 11:58: at [place] [address] bedtime. [facility] Branch spironolact Yes 25mg Take 25 mg Univers one 25 mg 8-20 by mouth ity of tablet 11:58: daily. [address] buPROPion Yes 150mg Take 150 Uni vers 75 mg 8-20 mg by ity of tablet 11:58: mouth. [address] PARoxetine Yes 40mg Take 40 mg U nivers 40 mg 8-20 by mouth ity of tablet 11:58: daily. [address] Branch atorvastati Yes 20mg Take 20 mg Univers n 20 mg 8-20 by mouth ity of tablet 11:58: at [place] [address] bedtime. [facility] Branch spironolact Yes 25mg Take 25 mg Univers one 25 mg 8-20 by mouth ity of tablet 11:58: daily. [address] buPROPion 0 Yes 150mg Take 150 Uni vers 75 mg 8-20 mg by ity of tablet 11:58: mouth. [address] PARoxetine Yes 40mg Take 40 mg U nivers 40 mg 8-20 by mouth ity of tablet 11:58: daily. [place] 08 [facility] Branch atorvastati Yes 20mg Take 20 mg Univers n 20 mg 8-20 by mouth ity of tablet 11:58: at [place] 08 bedtime. Medical Branch spironolact Yes 25mg Take 25 mg Univers one 25 mg 8-20 by mouth ity of tablet 11:58: daily. Medical Branch buPROPion Yes 150mg Take 150 Uni vers 75 mg 8-20 mg by ity of tablet 11:58: mouth. Medical Branch PARoxetine Yes 40mg Take 40 mg U nivers 40 mg 8-20 by mouth ity of tablet 11:58: daily. Medical Branch atorvastati Yes 20mg Take 20 mg Univers n 20 mg 8-20 by mouth ity of tablet 11:58: at [place] 08 bedtime. Medical Branch spironolact Yes 25mg Take 25 mg Univers one 25 mg 8-20 by mouth ity of tablet 11:58: daily. Medical Branch amitriptyli Yes [id number] 50mg Take 1 Univers ne 50 mg 8-20 tablet by ity of tablet 00:00: mouth at [place] 00 bedtime. Medical Branch erenumab-ao Yes 140mg inject 140 Univers oe (AIMOVIG 8-20 mg under ity of AUTOINJECTO 00:00: the [place] R) 140 00 once every Medical mg/mL AtIn month. Branch amitriptyli Yes [id number] 50mg Take 1 Univers ne 50 mg 8-20 tablet by ity of tablet 00:00: mouth at [place] 00 bedtime. Medical Branch erenumab-ao Yes 140mg inject 140 Univers oe (AIMOVIG 8-20 mg under ity of AUTOINJECTO 00:00: the skin [place] R) 140 00 once every Medical mg/mL AtIn month. Branch amitriptyli Yes [id number] 50mg Take 1 Univers ne 50 mg 8-20 tablet by ity of tablet 00:00: mouth at [place] 00 bedtime. Medical Branch erenumab-ao Yes 140mg inject 140 Univers oe (AIMOVIG 8-20 mg under ity of AUTOINJECTO 00:00: the skin [place] R) 140 00 once every Medical mg/mL AtIn month. Branch amitriptyli 2018- Yes [id number] 50mg Take 1 Univers ne 50 mg 8-20 tablet by ity of tablet 00:00: mouth at [place] 00 bedtime. Medical Branch erenumab-ao Yes 140mg inject 140 Univers oe (AIMOVIG 8-20 mg under ity of AUTOINJECTO 00:00: the [place] R) 140 00 once every Medical mg/mL AtIn month. Branch Immunizations Ordered Filled Immunization Date Status Comments [facility] Immunization Name Name SARS-COV-2 COVID-19 2020-09-12 Completed Unive rsity of MODERNA VACCINE 00:00:00 [facility] SARS-COV-2 COVID-19 2020-09-12 Completed Unive rsity of MODERNA VACCINE 00:00:00 [facility] SARS-COV-2 COVID-19 2020-09-12 Completed Unive rsity of MODERNA VACCINE 00:00:00 [facility] SARS-COV-2 COVID-19 2020-09-12 Completed Unive rsity of MODERNA VACCINE 00:00:00 [facility] SARS-COV-2 COVID-19 2020-08-15 Completed Unive rsity of MODERNA VACCINE 00:00:00 [facility] SARS-COV-2 COVID-19 2020-08-15 Completed Unive rsity of MODERNA VACCINE 00:00:00 [facility] SARS-COV-2 COVID-19 2020-08-15 Completed Unive rsity of MODERNA VACCINE 00:00:00 [facility] SARS-COV-2 COVID-19 2020-08-15 Completed Unive rsity of MODERNA VACCINE 00:00:00 [facility] Vital Signs Vital Name Observation Time Observation Value Comments Source Body temperature 2021-06-20 19:42:00 36.56 [facility] Respiratory rate 2021-06-20 19:42:00 18 /min [facility] Oxygen saturation in 2021-06-20 19:42:00 98 /min [facility] Arterial blood by [facility] Pulse oximetry Branch Systolic blood 2021-06-20 19:42:00 174 mm[Hg] [facility] sity of pressure [facility] Diastolic blood 2021-06-20 19:42:00 81 mm[Hg] Unive rsity of pressure [facility] Heart rate 2021-06-20 19:42:00 78 /min Universi ty [facility] Systolic blood 2021-06-17 00:15:00 141 mm[Hg] Univer sity of pressure [facility] Diastolic blood 2021-06-17 00:15:00 80 mm[Hg] Unive rsity of pressure [facility] Heart rate 2021-06-17 00:11:00 88 /[facility] Body [facility] 2021-06-17 00:11:00 36.67 [facility] Respiratory rate 2021-06-17 00:11:00 18 /min [facility] Body height 2021-06-17 00:11:00 154.9 cm [facility] Body weight 2021-06-17 00:11:00 93.441 kg [facility] BMI 2021-06-17 00:11:00 38.92 kg/m2 [facility] Oxygen saturation in 2021-06-17 00:11:00 98 /min [facility] Arterial blood by [facility] Pulse oximetry Branch Procedures Procedure Date / Time Performed Performing Clinician [facility] CONSENT/REFUSAL FOR 2021-06-20 06:01:00 Doctor Unassigned, No Un [facility] DIAGNOSIS AND Name Medical Branch TREATMENT Encounters Start End Encounter Admission Attending Care Care Encounter Source Date/Time Date/Time Type Type Clinicians Facility Department ID 2021-08-29 [facility] [id number] Common 09:33:04 [id number] [facility] 2021-06-20 2021-06-20 Nurse Therapy, Clc Covid Infusion [facility] [id number] Univers 13:30:00 14:30:00 Visit Breana Oseguera [facility] [id number] ity of [place] [id number] [facility] daryn [place] [phone] [facility] MEDICAL 053 Branch OFFICE BUILDING 2021-06-20 2021-06-20 Outpatient R ANA [facility] [id number] Univers 13:30:00 13:30:00 BREANA [id number] ity [facility] 2021-06-20 2021-06-20 Outpatient [address] [facility] [id number] Univers 13:30:00 13:30:00 BREANA ity [facility] 2021-06-20 2021-06-20 Orders Doctor KHAN [id number] Univers 00:00:00 00:00:00 Only Unassigned, VADIM [id number] ity of [place] [facility] [id number] Abraham as [id number] [facility] 009 Branch 2021-06-18 2021-06-18 Telephone ERIN Martinez [id number] Univers 00:00:00 00:00:00 Pina Farris VADIM [id number] it y of [facility] 4.2.7.2.686 Abraham as [id number] [facility] 019 [place] 2021-06-16 2021-06-16 [facility] [id number] Univers 18:20:00 19:11:56 KASSIDY ity [facility] 2021-06-16 2021-06-16 Urgent Kassidy Balbuena [facility] [id number] Univers 18:20:00 19:11:56 [facility] [id number] ity of [place] [id number] Abraham as PEDRO PABLO?BLEA [phone] [address] MEDICAL OFFICE BUILDING 2021-06-16 2021-06-[address] [facility] [id number] Univers 18:20:00 18:20:00 [id number] ity of [facility] 2020-09-12 2020-09-[address] [facility] [id number] Univers 08:40:00 08:40:00 ity of [facility] 2020-08-15 2020-08-[address] [facility] [id number] Univers 08:15:00 08:15:00 ity of [facility] 2019-07-15 2019-07-09 [facility] [id number] [facility] 08:30:00 08:30:00 Ray Rodriguez [facility] 2019-02-27 2019-02-27 Hospital Margaret [facility] [id number] 10:33:52 23:59:00 Encounter Selwyn Duran [id number] [place] [id number] [place] [id number] 2019-02-27 2019-02-27 Video Game Engineer 1, Adc Lab [facility] [id number] 10:38:02 10:53:02 Visit Roger [id number] [place] 4.2.7.2.686 [place] [id number] 2019-02-04 2019-02-04 Office Margaret [facility] [id number] 10:08:52 12:00:03 Visit Selwyn Duran [id number] [place] [id number] [place] [id number] nal 092 Building Results Test Description Test Time Test Comments Results Result [facility] e Comments - CT NECK 2019-07-15 Name: CATE ROB W/CONTRAST 13:56:00 MANE AVERY [place] : 1950 Age/S: 68 / F [id number] [address] [place] Unit #: [id number] Loc: [place] [address] Phys: Ray Fierro III, MD Acct: [id number] Dis Date: Status: REG CL PHONE #: [phone] Exam Date: 07/15/2019923 FAX #: Reason: NECK SWELLING EXAMS: CPT: [id number] CT NECK W/CONTRAST [id number] HISTORY: Neck swelling TECHNIQUE: Axial tomograms and [...] collection. No other acute abnormality identified. at 1356 Reported and signed by: Jose Juan Don M.D. CC: Ray Fierro III, MD Technologist:Ami Bae, RT(R)(CT); Kri CTDI: DLP: Trnscb Date/Time: 07/15/2019 (8045) [email or web address] Orig Print D/T: S: 07/15/2019 (2476) PAGE 1 Signed Report BLOOD UREA NITROGEN 2019-07-15 08:52:00 Test Item Value Reference Range Interpretation Comme nts BLOOD UREA NITROGEN (test code = BUN) 17 MG/DL 7-18 N [id number] 08:52:00 Test Item Value Reference Range Interpretation Comments CREATININE (test code = CREAT) 0.8 MG/DL 0.6-1.0 N
--- NOTE | 2022-01-08 20:35 | RAD REPORT ---
EXAM DESCRIPTION: RAD - Chest Single View - 01/08/2022 8:28 pm CLINICAL HISTORY: SOB COMPARISON: Chest Pa And Lat (2 Views) dated 10/17/2021; Chest Pa And Lat (2 Views) dated 02/23/2021; Ch est Single View dated 10/30/2020; CHEST SINGLE VIEW dated 03/26/2008 FINDINGS: Lines: None. Lungs: No evidence of edema or pneumonia. Pleural: No significant pleural effusions or pneumothorax. Cardiac: The heart size is within normal limits. Bones: No acute fractures. ACDF in the cervical spine. Other: IMPRESSION: No acute cardiopulmonary disease.
[2022-01-08 20:41] LABS: SARS-CoV-2 Antigen Rapid Res Negative (Negative)
--- NOTE | 2022-01-08 21:18 | ER ---
Nurse's Notes [facility] Name: Ryanne Jo Age: 71 yrs Sex: Female : 1950 Arrival Date: 01/08/2022 Time: 19:27 Bed 15 Private MD: Diagnosis: Acute pharyngitis, unspecified Presentation: 01/08 19:33 Chief complaint: Patient states: "I wanted to see why my face is swelling,. my gums are vc1 swollen my face all the way up to my eye. We came back from [place] Sunday and by my face looked like this. I was dizzy this morning when I got up and I have a little bit of a sore throat.". Chief complaint:. Coronavirus screen: Vaccine status: Patient reports receiving the 2nd dose of the covid vaccine. Moderna. Ebola Screen: No symptoms or risks identified at this time. Risk Assessment: Do you want to hurt yourself or someone else? Patient reports no desire to harm self or others. Onset of symptoms is unknown. 19:33 Method Of Arrival: Ambulatory vc1 19:33 Acuity: ALEIDA 4 vc1 19:59 Initial Sepsis Screen: Does the patient meet any 2 criteria? No. Patient's initial 3 sepsis screen is negative. Does the patient have a suspected source of infection? No. Patient's initial sepsis screen is negative. Triage Assessment: 19:38 General: Appears in no apparent distress. uncomfortable, Behavior is calm, cooperative, vc1 appropriate for age. Pain: Complains of pain in throat hurts, chest uncomfortable. EENT: Swelling noted. Neuro: Level of Consciousness is awake, alert, obeys commands, Oriented to person, place, time, situation, Appropriate for age. Cardiovascular: No deficits noted. Respiratory: Airway is patent Respiratory effort is even, unlabored, Respiratory pattern is regular, symmetrical. GI: No deficits noted. : No deficits noted. Derm: Skin is intact, is healthy with good turgor, Swelling to left side of face. Historical: - Allergies: 19:36 Amoxicillin; vc1 19:36 Cipro PO; vc1 19:36 QUINOLONES; vc1 20:25 Grapefruit; eh3 20:25 Tea; eh3 20:25 Pecans; eh3 20:25 Strawberries; eh3 20:25 Peanuts; eh3 - Home Meds: 20:25 paroxetine HCl 20 mg Oral tab 1 tab once daily [Active]; spironolactone 25 mg Oral tab eh3 1 tab once daily [Active]; atorvastatin 20 mg oral tab 1 tab once daily for hyperlipidemia [Active]; amlodipine 5 mg tab 1 tab once daily for hypertension [Active]; metformin 500 mg Oral tab 1 tab 2 times per day for type 2 diabetes mellitus [Active]; Zyrtec 10 mg Oral tab 2 tabs once daily for seasonal allergic rhinitis [Active]; topiramate 50 mg oral tab 1 tab 3 times per day for migraine prevention [Active]; montelukast 10 mg oral tab 1 tab once daily for maintenance therapy for asthma [Active]; pantoprazole 40 mg oral TbEC 1 tab once daily for heartburn [Active]; doxycycline hyclate 50 mg Oral cap 1 cap once daily for bacterial infection of the eyes [Active]; - PMHx: 19:36 Diabetes - NIDDM; Hyperlipidemia; Hypertension; vc1 - PSHx: 19:36 section; vc1 - Immunization history:: Adult Immunizations up to date, Client reports receiving the 2nd dose of the Covid vaccine. - Social history:: Smoking status: Patient denies any tobacco usage or history of. Screenin:02 Abuse screen: Denies threats or abuse. Denies injuries from another. Nutritional eh3 screening: No deficits noted. Tuberculosis screening: No symptoms or risk factors identified. Fall Risk None identified. Assessment: 20:02 Reassessment: No changes from previously documented assessment. See triage assessment.. eh3 General: Appears in no apparent distress. comfortable, Behavior is calm, cooperative, appropriate for age. Pain: Denies pain. Neuro: Level of Consciousness is awake, alert, obeys commands, Oriented to person, place, time, situation. Cardiovascular: Capillary refill < 3 seconds Patient's skin is warm and dry. Respiratory: Reports shortness of breath cough that is dry, Airway is patent Respiratory effort is even, unlabored, Breath sounds are diminished bilaterally. in left lower lobe and right lower lobe. GI: No signs and/or symptoms were reported involving the gastrointestinal system. : No signs and/or symptoms were reported regarding the genitourinary system. EENT: Throat is reddened. Derm: Skin is pink, warm \\T\\ dry. Cheeks red bilaterally. Swelling on left side of face from chin to just below left eye. Musculoskeletal: No signs and/or symptoms reported regarding the musculoskeletal system. Vital Signs: 19:39 BP 129 / 65; Pulse 86; Resp 18; Pulse Ox 98% ; Weight 95.25 kg; Height 5 ft. 1 in. vc1 (154.94 cm); Pain 3/10; 19:40 Temp 97.7; vc1 19:59 BP 139 / 62; Pulse 86; Resp 18; Pulse Ox 97% on R/A; eh3 20:46 BP 153 / 68; Pulse 73; Resp 18; Pulse Ox 99% on R/A; eh3 19:39 Body Mass Index 39.68 (95.25 kg, 154.94 cm) vc1 ED Course: 19:27 Patient arrived in ED. bp1 19:31 Jero Anaya PA is PHCP. [facility] 19:31 Jose Luis Saunders DO is Attending Physician. [facility] 19:36 Triage completed. vc1 19:39 Arm band placed on right wrist. vc1 19:45 Erica Kraft is Primary Nurse. eh3 20:01 Patient has correct armband on for positive identification. Bed in low position. Call eh3 light in reach. Side rails up X2. Client placed on continuous cardiac and pulse oximetry monitoring. NIBP monitoring applied. pvc monitor on. Door closed. Noise minimized. Lights dimmed. Pillow given. 20:24 Influenza Screen (a \\T\\ B) Sent. eh3 20:24 Strep Sent. eh3 20:24 SARS RAPID Sent. eh3 20:29 Chest Single View XRAY In Process Unspecified. EDMS 21:34 No provider procedures requiring assistance completed. Patient did not have IV access eh3 during this emergency room visit. Administered Medications: No medications were administered Medication: 21:35 VIS not applicable for this client. eh3 Outcome: 21:17 Discharge ordered by . [facility] 21:34 Discharged to home ambulatory. eh3 21:34 Condition: stable 21:34 Discharge instructions given to patient, Instructed on discharge instructions, follow up and referral plans. medication usage, Demonstrated understanding of instructions, follow-up care, medications, Prescriptions given X 2. 21:35 Patient left the ED. eh3 Signatures: Dispatcher [employer] EDMS Jero Anaya PA PA jmm Paniauga, Silvia bp1 Calcote, Bernarda, RN RN vc1 Erica Kraft 3 Corrections: (The following items were deleted from the chart) 20:43 20:25 PMHx: ; [facility]
--- NOTE | 2022-01-08 21:18 | EDPHYS ---
Physician Documentation [facility] Name: Ryanne Jo Age: 71 yrs Sex: Female : 1950 Arrival Date: 01/08/2022 Time: 19:27 Bed 15 Private MD: ED Physician Jose Luis Saunders HPI: 01/08 19:53 This 71 yrs old Female presents to ER via Ambulatory with complaints of Facial jmm Swelling, Sore Throat. 19:53 Onset: The symptoms/episode began/occurred gradually, 1 day(s) ago. This is a jmm 71-year-old female with history of diabetes mellitus, hyperlipidemia, hypertension the presents emerged department with complaints of sore throat, facial redness, shortness of breath beginning today. Patient also complains of fatigue. Denies chest pain, vomiting, diarrhea. Denies known infection exposure. Historical: - Allergies: 19:36 Amoxicillin; vc1 19:36 Cipro PO; vc1 19:36 QUINOLONES; vc1 20:25 Grapefruit; eh3 20:25 Tea; eh3 20:25 Pecans; eh3 20:25 Strawberries; eh3 20:25 Peanuts; eh3 - Home Meds: 20:25 paroxetine HCl 20 mg Oral tab 1 tab once daily [Active]; spironolactone 25 mg Oral tab eh3 1 tab once daily [Active]; atorvastatin 20 mg oral tab 1 tab once daily for hyperlipidemia [Active]; amlodipine 5 mg tab 1 tab once daily for hypertension [Active]; metformin 500 mg Oral tab 1 tab 2 times per day for type 2 diabetes mellitus [Active]; Zyrtec 10 mg Oral tab 2 tabs once daily for seasonal allergic rhinitis [Active]; topiramate 50 mg oral tab 1 tab 3 times per day for migraine prevention [Active]; montelukast 10 mg oral tab 1 tab once daily for maintenance therapy for asthma [Active]; pantoprazole 40 mg oral TbEC 1 tab once daily for heartburn [Active]; doxycycline hyclate 50 mg Oral cap 1 cap once daily for bacterial infection of the eyes [Active]; - PMHx: 19:36 Diabetes - NIDDM; Hyperlipidemia; Hypertension; vc1 - PSHx: 19:36 section; vc1 - Immunization history:: Adult Immunizations up to date, Client reports receiving the 2nd dose of the Covid vaccine. - Social history:: Smoking status: Patient denies any tobacco usage or history of. ROS: 19:53 ENT: Positive for sore throat. jmm 19:53 Cardiovascular: Positive for 19:53 Respiratory: Positive for shortness of breath. 19:53 Abdomen/GI: Negative for abdominal pain, nausea and vomiting, diarrhea. 19:53 All other systems are negative. Exam: 19:53 Constitutional: This is a well developed, well nourished patient who is awake, alert, jmm and in no acute distress. Head/Face: atraumatic. Eyes: EOMI, no conjunctival erythema appreciated 19:53 Neck: Trachea midline, Supple Chest/axilla: Normal chest wall appearance and motion. Cardiovascular: Regular rate and rhythm. No edema appreciated Respiratory: Normal respirations, no respiratory distress appreciated Abdomen/GI: Non distended Back: Normal ROM Skin: General appearance color normal MS/ Extremity: Moves all extremities, no obvious deformities appreciated, no edema noted to the lower extremities Neuro: Awake and alert Psych: Behavior is normal, Mood is normal, Patient is cooperative and pleasant 19:53 ENT: Mild pharyngeal erythema appreciated, no uvular shift, no peritonsillar mass appreciated. Vital Signs: 19:39 BP 129 / 65; Pulse 86; Resp 18; Pulse Ox 98% ; Weight 95.25 kg; Height 5 ft. 1 in. vc1 (154.94 cm); Pain 3/10; 19:40 Temp 97.7; vc1 19:59 BP 139 / 62; Pulse 86; Resp 18; Pulse Ox 97% on R/A; eh3 20:46 BP 153 / 68; Pulse 73; Resp 18; Pulse Ox 99% on R/A; eh3 19:39 Body Mass Index 39.68 (95.25 kg, 154.94 cm) vc1 MDM: 19:53 Patient medically screened. [facility] 21:16 Data reviewed: vital signs, nurses notes. Counseling: I had a detailed discussion with eliane the patient and/or guardian regarding: the historical points, exam findings, and any diagnostic results supporting the discharge/admit diagnosis, lab results, the need for outpatient follow up, to return to the emergency department if symptoms worsen or persist or if there are any questions or concerns that arise at home. ED course: Patient is alert and oriented and nontoxic in appearance NAD. No signs of respiratory distress. Chest x-ray clear. Labs are unremarkable. Patient will be put on a course of steroids and oral antibiotics and given strict return precautions. Patient understood and agrees plan of care.. 01/08 19:59 Order name: SARS RAPID; Complete Time: 20:50 [facility] 01/08 19:59 Order name: Strep; Complete Time: 20:59 [facility] 01/08 19:59 Order name: Influenza Screen (a \T\ B); Complete Time: 21:00 [facility] 01/08 20:00 Order name: Chest Single View XRAY; Complete Time: 20:50 [facility] 01/08 21:01 Order name: Throat Culture EDMS Administered Medications: No medications were administered Disposition: 01/09 06:06 Co-signature as Attending Physician, Jose Luis PALACIO was immediately available on-site ms3 in the Emergency Department for consultation in the care of the patient.. Disposition Summary: 01/08/22 21:17 Discharge Ordered Location: Home [facility] Condition: Stable [facility] Diagnosis - Acute pharyngitis, unspecified [facility] Followup: [facility] - With: Private Physician - When: 2 - 3 days - Reason: Recheck today's complaints, Continuance of care, Re-evaluation by your physician Discharge Instructions: - Discharge Summary Sheet [facility] - Pharyngitis [facility] Forms: - Medication Reconciliation Form [facility] - Thank You Letter [facility] - Antibiotic Education [facility] - Prescription Opioid Use [facility] Prescriptions: - Zithromax Z-Luis 250 mg Oral Tablet - take 1 tablet by ORAL route as directed for 5 days Day 1 - take two (2) tablets [facility] one time. Day 2, 3, 4 , 5 take one (1) tablet once daily.; 6 tablet; Refills: 0, Product Selection Permitted - Medrol (Luis) 4 mg Oral Tablets, Dose Pack - take 1 tablet by ORAL route as directed - follow package instructions; 1 [facility] packet; Refills: 0, Product Selection Permitted Signatures: Dispatcher [employer] EDMS Jero Anaya PA PA jmm Sims, Marcus, DO DO ms3 Bernarda Fierro RN RN vc1 Erica Kraft eh3 Corrections: (The following items were deleted from the chart) 01/08 20:43 20:25 PMHx: ; eh3 eh3
[2022-01-08 22:10] VITALS: TEMP 97.7
[2022-01-08 22:13] VITALS: BP 153/68; O2SAT 99
== END 2022-01-08 21:35 | disposition home or self-care (01) ==
LOC: ER 19:23
DX: J02.9 Acute pharyngitis, unspecified (principal); R53.83 Other fatigue; R06.02 Shortness of breath; R22.9 Localized swelling, mass and lump, unspecified; E11.9 Type 2 diabetes mellitus without complications; I10 Essential (primary) hypertension; Z20.822 Contact with and (suspected) exposure to COVID-19; Z88.1 Allergy status to other antibiotic agents; Z88.5 Allergy status to narcotic agent; Z91.018 Allergy to other foods
CPT/HCPCS: 36415; 71045; 87070; 87081; 87804; 87811; 99284

== ENCOUNTER 2023-12-15 22:14 | Inpatient (IN) | payer OTHER ==
--- OUTSIDE RECORDS SUMMARY | 2023-12-15 22:17 | XMS REPORT | Continuity of Care Document ---
Author Name Unknown Address [address] [facility] [place] [address] [facility] Address [address] [facility] [address] [place] [address] Care Team Providers Care Oven Heater Name Role Phone Keven Olmedo Primary Care Physician [phone] Therapy, Clc Covid Infusion Attending Clinician Unavailable Breana Oseguera MD Attending Clinician [phone] BREANA OSEGUERA Attending Clinician Unavailable Doctor Unassigned, [place] Attending Clinician U paris Martinez RN, Pina Farris Attending Clinician UnavailKASSIDY Chahal Attending Clinician Unavailable Kassidy Poon Attending Clinician [phone] Gila Duron MD Attending Clinician [phone] Ray Fierro Attending Clinician Unavailtravis Robles MD, Selwyn Mariee Attending Clinician [phone], [facility] Attending Clinician Unavailable KNOW, DOES_NOT Admitting Clinician Unavailable Payers Payer Name Policy Type Policy Number Effective Date Expirati on Date Source Problems Condition Name Condition Details Condition Category Status Onset Date Resolution Date Last Treatment Date Treating Clinician Comments Source No known active problems No known active problems Disease [facility] [id number] Primary osteoarthr itis of right knee Problem [facility] [id number] Primary osteoarthr itis of left knee Problem [facility] Allergies, Adverse Reactions, Alerts Allergy Name Allergy Type Status Severity Reaction(s) Onset Date Inactive Date Treating Clinician Comments Source GRAPEFRU IT DRUG INGREDI Active ITCHING 20190 8-20 00:00: 00 [facility] PEANUT DRUG INGREDI Active ITCHING 0 820 00:00: 00 [facility] TREE NUTS Food Active ITCHING 0 820 00:00: 00 [facility] PENICILL IN DRUG INGREDI Active Rash 0 820 00:00: 00 [facility] QUINOLON ES Drug Class Active Rash 0 820 00:00: 00 [facility] STRAWBER RY DRUG INGREDI Active ITCHING 0 820 00:00: 00 [facility] Ciproflo xacin Propensi ty to adverse reaction s Active Rash 0 820 00:00: 00 [facility] Grapefru it Propensi ty to adverse reaction s Active Itching 0 820 00:00: 00 [facility] Peanut Propensi ty to adverse reaction s Active Itching 0 820 00:00: 00 [facility] Tree Nuts Propensi ty to adverse reaction s Active Itching 0 820 00:00: 00 [facility] Penicill in Propensi ty to adverse reaction s Active Rash 0 820 00:00: 00 [facility] Quinolon es Propensi ty to adverse reaction s Active Rash 0 820 00:00: 00 [facility] Strawber ry Propensi ty to adverse reaction s Active Itching 0 820 00:00: 00 [facility] CIPROFLO XACIN DRUG INGREDI Active Rash 2019-0 8-20 00:00: 00 [facility] Quinolon es DA Active [place] 12-14 00:00: 00 [facility] peanut FA Active [place] 12-14 00:00: 00 [facility] grapefru it FA Active [place] 12-14 00:00: 00 [facility] ciproflo xacin DA Active [place] 12-14 00:00: 00 [facility] amoxicil raymundo DA Active [place] 12-14 00:00: 00 [facility] tea tree DA Active [place] 12-14 00:00: 00 [facility] strawber ry FA Active [place] 12-14 00:00: 00 [facility] red dye FA Active U 12-14 00:00: 00 [facility] yellow dye FA Active U 12-14 00:00: 00 [facility] pecan nut FA Active [place] 12-14 00:00: 00 [facility] yellow dye FA Active U ITCHING, FEELS LIKE SKIN CRAWLING 12-14 00:00: 00 [facility] pecan nut FA Active [place] ITCHING, FEELS LIKE SKIN CRAWLING 12-14 00:00: 00 [facility] Quinolon es DA Active [place] RED STREAKS; HOT FEELING; SKIN CRAWLS 12-14 00:00: 00 [facility] peanut FA Active [place] LIP NUMBNESS 12-14 00:00: 00 [facility] grapefru it FA Active [place] ITCHING, FEELS LIKE SKIN CRAWLING 12-14 00:00: 00 [facility] ciproflo xacin DA Active [place] RED STREAKS; HOT FEELING; SKIN CRAWLS 12-14 00:00: 00 [facility] amoxicil raymundo DA Active [place] RED STREAKS; HOT FEELING; SKIN CRAWLS 12-14 00:00: 00 [facility] tea tree DA Active [place] ITCHING, FEELS LIKE SKIN CRAWLING 12-14 00:00: 00 [facility] strawber ry FA Active [place] ITCHING, FEELS LIKE SKIN CRAWLING 12-14 00:00: 00 [facility] red dye FA Active U ITCHING, FEELS LIKE SKIN CRAWLING 12-14 00:00: 00 [facility] [id number] Drug allergy Active Unknown [facility] Latex Latex Active Unknown [facility] ciproflo xacin ciproflo xacin Active Unknown [facility] quinapri l quinapri l Active Unknown [facility] Social History Social Habit Start Date Stop Date Quantity Comments Source Exposure to SARS-CoV-2 (event) Yes [facility] History of Tobacco Use [facility] Sex Assigned At [facility] Alcohol intake 2021-06-16 00:00:00 2021-06-16 00:00:00 Ex-drinker (finding) [facility] Tobacco use and exposure 2019-02-04 00:00:00 2019-02-04 00:00:00 Never used [facility] Smoking Status Start Date Stop Date Source Former Smoker 2022-02-06 00:00:00 2022-02-06 00:00:00 [facility] Never smoker [facility] Medications Ordered Medication Name Filled Medication Name Start Date Stop Date Current Medication? Ordering Clinician Indication Dosage Frequency Signature (SIG) Comments Components Source Bupivicaine [place] Bupivicaine [place] 02-06 00:00: 00 No 2.5mg [facility] Kenalog (Triamcinol one) Kenalog (Triamcinol one) 02-06 00:00: 00 No 40mg [facility] Bupivicaine [place] Bupivicaine [place] 02-06 00:00: 00 No 2.5mg [facility] Kenalog (Triamcinol one) Kenalog (Triamcinol one) 02-06 00:00: 00 No 40mg [facility] Bupivicaine [place] Bupivicaine [place] 02-06 00:00: 00 No 2.5mg [facility] Kenalog (Triamcinol one) Kenalog (Triamcinol one) 0 8 00:00: 00 No 40mg [facility] Bupivicaine [place] Bupivicaine [place] 0 02-06 00:00: 00 No 2.5mg [facility] Kenalog (Triamcinol one) Kenalog (Triamcinol one) 0 02-06 00:00: 00 No 40mg [facility] Bupivicaine [place] Bupivicaine [place] 0 02-06 00:00: 00 No 2.5mg [facility] Kenalog (Triamcinol one) Kenalog (Triamcinol one) 0 8 00:00: 00 No 40mg [facility] Bupivicaine [place] Bupivicaine [place] 0 02-06 00:00: 00 No 2.5mg [facility] Kenalog (Triamcinol one) Kenalog (Triamcinol one) 0 02-06 00:00: 00 No 40mg [facility] Bupivicaine [place] Bupivicaine [place] 0 02-06 00:00: 00 No 2.5mg [facility] Kenalog (Triamcinol one) Kenalog (Triamcinol one) 0 8 00:00: 00 No 40mg [facility] Bupivicaine [place] Bupivicaine [place] 2021-0 02-06 00:00: 00 No 2.5mg [facility] Kenalog (Triamcinol one) Kenalog (Triamcinol one) 0 02-06 00:00: 00 No 40mg [facility] Bupivicaine [place] Bupivicaine [place] 2021-0 8 00:00: 00 No 2.5mg [facility] Kenalog (Triamcinol one) Kenalog (Triamcinol one) 0 8 00:00: 00 No 40mg [facility] Bupivicaine [place] Bupivicaine [place] 2021-0 02-06 00:00: 00 No 2.5mg [facility] Kenalog (Triamcinol one) Kenalog (Triamcinol one) 2021-0 8 00:00: 00 No 40mg [facility] Bupivicaine [place] Bupivicaine [place] 0 02-06 00:00: 00 No 2.5mg [facility] Kenalog (Triamcinol one) Kenalog (Triamcinol one) 2021-0 02-06 00:00: 00 No 40mg [facility] HYDROcodone -Acetaminop hen 5-325 MG HYDROcodone -Acetaminop hen 5-325 MG 2021-0 5-04 00:00: 00 No 1{table t_as_ne eded} HYDROcodone -Acetaminop hen 5-325 MG HYDROcodone -Acetaminop hen 5-325 MG 2-0 5-04 00:00: 00 No 1{table t_as_ne eded} HYDROcodon e-Acetamin ophen 5-325 MG HYDROcodone -Acetaminop hen 5-325 MG HYDROcodone -Acetaminop hen 5-325 MG 2-0 5-04 00:00: 00 No 1{table t_as_ne eded} HYDROcodon e-Acetamin ophen 5-325 MG HYDROcodone -Acetaminop hen 5-325 MG HYDROcodone -Acetaminop hen 5-325 MG 2-0 5-04 00:00: 00 No 1{table t_as_ne eded} HYDROcodon e-Acetamin ophen 5-325 MG HYDROcodone -Acetaminop hen 5-325 MG HYDROcodone -Acetaminop hen 5-325 MG 2-0 5-04 00:00: 00 No 1{table t_as_ne eded} HYDROcodon e-Acetamin ophen 5-325 MG HYDROcodone -Acetaminop hen 5-325 MG HYDROcodone -Acetaminop hen 5-325 MG 2-0 5-04 00:00: 00 No 1{table t_as_ne eded} HYDROcodon e-Acetamin ophen 5-325 MG HYDROcodone -Acetaminop hen 5-325 MG HYDROcodone -Acetaminop hen 5-325 MG 2022-0 5-04 00:00: 00 No 1{table t_as_ne eded} HYDROcodon e-Acetamin ophen 5-325 MG HYDROcodone -Acetaminop hen 5-325 MG HYDROcodone -Acetaminop hen 5-325 MG 2022-0 5-04 00:00: 00 No 1{table t_as_ne eded} HYDROcodon e-Acetamin ophen 5-325 MG HYDROcodone -Acetaminop hen 5-325 MG HYDROcodone -Acetaminop hen 5-325 MG 2022-0 5-04 00:00: 00 No 1{table t_as_ne eded} HYDROcodon e-Acetamin ophen 5-325 MG HYDROcodone -Acetaminop hen 5-325 MG HYDROcodone -Acetaminop hen 5-325 MG 2-0 5-04 00:00: 00 No 1{table t_as_ne eded} HYDROcodon e-Acetamin ophen 5-325 MG HYDROcodone -Acetaminop hen 5-325 MG HYDROcodone -Acetaminop hen 5-325 MG 2-0 5-04 00:00: 00 No 1{table t_as_ne eded} HYDROcodon e-Acetamin ophen 5-325 MG Bupivicaine [place] Bupivicaine [place] 2021-0 14 00:00: 00 No 2.5mg [facility] Kenalog (Triamcinol one) Kenalog (Triamcinol one) 2021-0 3-14 00:00: 00 No 40mg [facility] Bupivicaine [place] Bupivicaine [place] 2-0 3-14 00:00: 00 No 2.5mg [facility] Kenalog (Triamcinol one) Kenalog (Triamcinol one) 2021-0 3-14 00:00: 00 No 40mg [facility] Bupivicaine [place] Bupivicaine [place] 2-0 3-14 00:00: 00 No 2.5mg [facility] Kenalog (Triamcinol one) Kenalog (Triamcinol one) 0 14 00:00: 00 No 40mg [facility] Bupivicaine [place] Bupivicaine [place] 0 14 00:00: 00 No 2.5mg [facility] Kenalog (Triamcinol one) Kenalog (Triamcinol one) 0 14 00:00: 00 No 40mg [facility] Bupivicaine [place] Bupivicaine [place] 0 14 00:00: 00 No 2.5mg [facility] Kenalog (Triamcinol one) Kenalog (Triamcinol one) 0 14 00:00: 00 No 40mg [facility] Bupivicaine [place] Bupivicaine [place] 0 14 00:00: 00 No 2.5mg [facility] Kenalog (Triamcinol one) Kenalog (Triamcinol one) 0 14 00:00: 00 No 40mg [facility] Bupivicaine [place] Bupivicaine [place] 0 08-29 00:00: 00 No 2.5mg [facility] Kenalog (Triamcinol one) Kenalog (Triamcinol one) 0 14 00:00: 00 No 40mg [facility] Bupivicaine [place] Bupivicaine [place] 0 14 00:00: 00 No 2.5mg [facility] Kenalog (Triamcinol one) Kenalog (Triamcinol one) 0 14 00:00: 00 No 40mg [facility] Bupivicaine [place] Bupivicaine [place] 2021-0 14 00:00: 00 No 2.5mg [facility] Kenalog (Triamcinol one) Kenalog (Triamcinol one) 0 3-14 00:00: 00 No 40mg [facility] Bupivicaine [place] Bupivicaine [place] 08-29 00:00: 00 No 2.5mg [facility] Kenalog (Triamcinol one) Kenalog (Triamcinol one) 08-29 00:00: 00 No 40mg [facility] Bupivicaine [place] Bupivicaine [place] 08-29 00:00: 00 No 2.5mg [facility] Kenalog (Triamcinol one) Kenalog (Triamcinol one) 08-29 00:00: 00 No 40mg [facility] amLODIPine 5 mg tablet 02-04 11:58: 09 Yes 5mg Take 5 mg by mouth daily. [facility] metFORMIN 500 mg tablet 02-04 11:58: 09 Yes 500mg Take 500 mg by mouth every 12 (twelve) hours. [facility] Omeprazole 20 mg tablet 02-04 11:58: 09 Yes Take by mouth. [facility] Cetirizine (ZYRTEC) 10 mg capsule 02-04 11:58: 09 Yes Take by mouth. [facility] buPROPion 75 mg tablet 02-04 11:58: 08 Yes 150mg Take 150 mg by mouth. [facility] PARoxetine 40 mg tablet 02-04 11:58: 08 Yes 40mg Take 40 mg by mouth daily. [facility] atorvastati n 20 mg tablet 02-04 11:58: 08 Yes 20mg Take 20 mg by mouth at bedtime. [facility] spironolact one 25 mg tablet 02-04 11:58: 08 Yes 25mg Take 25 mg by mouth daily. [facility] amitriptyli ne 50 mg tablet 02-04 00:00: 00 Yes [id number] 50mg Take 1 tablet by mouth at bedtime. [facility] erenumab-ao oe (AIMOVIG AUTOINJECTO R) 140 mg/mL AtIn 2019-0 8-20 00:00: 00 Yes 140mg inject 140 mg under the skin once every month. [facility] metFORMIN HCl No metFORMIN HCl metFORMIN HCl No metFORMIN HCl metFORMIN HCl metFORMIN HCl No metFORMIN HCl metFORMIN HCl metFORMIN HCl No metFORMIN HCl metFORMIN HCl metFORMIN HCl No metFORMIN HCl metFORMIN HCl metFORMIN HCl No metFORMIN HCl metFORMIN HCl metFORMIN HCl No metFORMIN HCl metFORMIN HCl metFORMIN HCl No metFORMIN HCl metFORMIN HCl metFORMIN HCl No metFORMIN HCl metFORMIN HCl metFORMIN HCl No metFORMIN HCl metFORMIN HCl metFORMIN HCl No metFORMIN HCl Vital Signs Vital Name Observation Time Observation Value Comments S ource height 2022-02-06 09:00:00 60 [in_i] Commo n [facility] weight 2022-02-06 09:00:00 207.5 [lb_av] Co mmon [facility] temperature 2022-02-06 09:00:00 97.7 [degF] Com mon [facility] bmi 2022-02-06 09:00:00 40.52 kg/m2 Comm on [facility] blood pressure systolic 2022-02-06 09:00:00 138 mm[Hg] Common [facility] blood pressure diastolic 2022-02-06 09:00:00 86 mm[Hg] Common [facility] height 2021-12-26 09:30:00 60 [in_i] Commo n [facility] weight 2021-12-26 09:30:00 210 [lb_av] Comm on [facility] bmi 2021-12-26 09:30:00 41.01 kg/m2 Comm on [facility] height 2021-11-24 09:15:00 60 [in_i] Commo n [facility] weight 2021-11-24 09:15:00 210 [lb_av] Comm on [facility] bmi 2021-11-24 09:15:00 41.01 kg/m2 Comm on [facility] blood pressure systolic 2021-11-24 09:15:00 146 mm[Hg] Common [facility] blood pressure diastolic 2021-11-24 09:15:00 86 mm[Hg] Common [facility] height 2021-11-04 09:00:00 60 [in_i] Commo n [facility] weight 2021-11-04 09:00:00 204 [lb_av] Comm on [facility] temperature 2021-11-04 09:00:00 97.9 [degF] Com mon [facility] bmi 2021-11-04 09:00:00 39.84 kg/m2 Comm on [facility] blood pressure systolic 2021-11-04 09:00:00 134 mm[Hg] Common [facility] blood pressure diastolic 2021-11-04 09:00:00 84 mm[Hg] Common [facility] height 2021-10-13 08:30:00 60 [in_i] Commo n [facility] weight 2021-10-13 08:30:00 204 [lb_av] Comm on [facility] bmi 2021-10-13 08:30:00 39.84 kg/m2 Comm on [facility] blood pressure systolic 2021-10-13 08:30:00 128 mm[Hg] Common [facility] blood pressure diastolic 2021-10-13 08:30:00 74 mm[Hg] Common [facility] Body temperature 2021-06-20 19:42:00 36.56 Sadie [facility] Respiratory rate 2021-06-20 19:42:00 18 /min [facility] Oxygen saturation in Arterial blood by Pulse oximetry 2021-06-20 19:42:00 98 /min [facility] Systolic blood pressure 2021-06-20 19:42:00 174 mm[Hg] [facility] Diastolic blood pressure 2021-06-20 19:42:00 81 mm[Hg] [facility] Heart rate 2021-06-20 19:42:00 78 /min [facility] Systolic blood pressure 2021-06-17 00:15:00 141 mm[Hg] [facility] Diastolic blood pressure 2021-06-17 00:15:00 80 mm[Hg] [facility] Heart rate 2021-06-17 00:11:00 88 /min [facility] Body temperature 2021-06-17 00:11:00 36.67 Sadie [facility] Respiratory rate 2021-06-17 00:11:00 18 /min [facility] Body height 2021-06-17 00:11:00 154.9 cm [facility] Body weight 2021-06-17 00:11:00 93.441 kg [facility] BMI 2021-06-17 00:11:00 38.92 kg/m2 [facility] Oxygen saturation in Arterial blood by Pulse oximetry 2021-06-17 00:11:00 98 /min [facility] Procedures Procedure Date / Time Performed Performing Clinicia n Source CONSENT/REFUSAL FOR DIAGNOSIS AND TREATMENT 2021-06-20 06:01:00 Doctor Unassigned, [place] [facility] Encounters Start Date/Time End Date/Time Encounter Type Admission Type Attending Clinicians Care Facility Care Department Encounter ID Source 2022-02-06 09:02:02 Outpatient STLMLC STLC [id number] [facility] 2021-08-29 09:33:04 Outpatient STLMLC STLMLC [id number] [facility] 2022-02-06 00:00:00 2022-02-06 00:00:00 OFFICE VISIT ESTAB PT LEVEL 4 [facility]LMLC STLC [id number] [facility] 2021-12-26 00:00:00 2021-12-26 00:00:00 NON-BILLAB LE VISIT STLMLC STLC [id number] [facility] 2021-12-12 00:00:00 2021-12-12 00:00:00 (TEL) STLMLC STLMLC [id number] [facility] 2021-11-24 00:00:00 2021-11-24 00:00:00 NON-BILLAB LE VISIT STLMLC STLMLC [id number] [facility] 2021-11-22 00:00:00 2021-11-22 00:00:00 (TEL) STLMLC STLMLC [id number] [facility] 2021-11-17 00:00:00 2021-11-17 00:00:00 (TEL) STLMLC STLMLC [id number] [facility] 2021-11-15 00:00:00 2021-11-15 00:00:00 (TEL) STLMLC STLMLC [id number] [facility] 2021-11-04 00:00:00 2021-11-04 00:00:00 NON-BILLAB LE VISIT STLMLC STLMLC [id number] [facility] 2021-10-25 00:00:00 2021-10-25 00:00:00 (TEL) STLMLC STLMLC [id number] [facility] 2021-10-18 00:00:00 2021-10-18 00:00:00 (TEL) STLMLC STLMLC [id number] [facility] 2021-10-13 00:00:00 2021-10-13 00:00:00 OFFICE VISIT ESTAB PT LEVEL 4 STLMLC STLMLC [id number] [facility] 2021-06-20 13:30:00 2021-06-20 14:30:00 Nurse Visit Therapy, Clc Breana Shields [facility] [id number] [facility] 2021-06-20 13:30:00 2021-06-20 13:30:00 Outpatient BREANA GRIER [facility] [id number] [facility] 2021-06-20 00:00:00 2021-06-20 00:00:00 Orders Only Doctor Unassigned, [place] [facility] [id number] [id number] [facility] 2021-06-18 00:00:00 2021-06-18 00:00:00 Telephone Pina Martinez [facility] [id number] [id number] [id number] [facility] 2021-06-16 18:20:00 2021-06-16 19:11:56 Outpatient R KASSIDY MONTIEL [facility] [id number] [facility] 2021-06-16 18:20:00 2021-06-16 19:11:56 Urgent Care Kassidy Montiel Amanda [facility] [id number] [facility] 2020-09-12 08:40:00 2020-09-12 08:40:00 Outpatient [facility] [id number] [facility] 2020-08-15 08:15:00 2020-08-15 08:15:00 Outpatient [facility] [id number] [facility] 2019-07-15 08:30:00 2019-07-09 08:30:[address] [facility] RADI [id number] [facility] 2019-02-27 10:33:52 2019-02-27 23:59:00 Hospital Encounter Selwyn Robles [facility] [id number] 4.2.7.2.686 [id number] 2019-02-27 10:38:02 2019-02-27 10:53:02 Design Maker Visit 1, [facility] [id number] [id number] 4.2.7.2.686 [id number] 2019-02-04 10:08:52 2019-02-04 12:00:03 Office Visit Selwyn Robles [facility] [id number] [id number] [id number] [id number] Results Test Description Test Time Test Comments Results Resul t Comments Source - CT NECK W/CONTRAST 2019-07-15 13:56:00 Name: CATE ROB [facility] : 1950 Age/S: 68 / F [address] [address] [place] Unit #: [id number] Loc: [place] [address] Phys: Ray Fierro III, MD Acct: [id number] Dis Date: Status: REG CLI PHONE #: [phone] Exam Date: 07/15/2019923 FAX #: Reason: NECK SWELLING EXAMS: CPT: [id number] CT NECK W/CONTRAST [id number] HISTORY: Neck swelling TECHNIQUE: Axial tomograms and [...] RT(R)(CT); Kri CTDI: DLP: Trnscb Date/Time: 07/15/2019 (7384) [id number] Orig Print D/T: S: 07/15/2019 (5193) PAGE 1 Signed Report [id number] 08:52:00* Test Item Value Reference Range Interpretation Comme nts CREATININE (test code = CREAT) 0.8 MG/DL 0.6-1.0 N Extremity Venous Uni LtdExtremity Venous Uni Ltd
[2023-12-15] MEDS ORDERED: NITROGLYCERIN 0.4 MG/TAB SL ONE (23:01)
[2023-12-15] MEDS ORDERED: ASPIRIN 81 MG CHEWABLE TABLET ONE (23:01)
[2023-12-15 23:57] LABS: Absolute Eosinophils 0.3 K/uL (0-0.5); Absolute Lymphocytes (CBC) 2.4 K/uL (0.7-4.9); Absolute Monocytes 0.8 K/uL (0.1-1.3); Absolute Neutrophil 4.2 K/uL (1.8-8.0); Basophils % 0.3 % (0-1.3); Eosinophils % 4.5 % (0-4.4); Hematocrit 44.5 % (36.0-45.0); Hemoglobin 14.8 g/dL (12.0-15.0); Lymphocytes % 31.2 % (15.3-44.8); MCH 30.4 pg (27.0-35.0); MCHC 33.3 g/dL (32.0-36.0); MCV 91.5 fL (80-100); MPV 7.4 fL (7.6-11.3); Monocytes % 10.1 % (3.3-12.3); Neutrophils % 53.9 % (41.7-73.7); Nucleated Red Blood Cells % 0.1 % (0-0); Platelets 366 thou/uL (152-406); RBC Red Blood Cell Count 4.87 M/uL (3.86-4.86); Red Cell Distribution Width 14.8 % (12.1-15.2)
[2023-12-16] MEDS ORDERED: MORPHINE 2 MG/ML SYR ONE (00:12)
--- NOTE | 2023-12-16 01:48 | ER ---
Nurse's Notes [facility] Name: Ryanne Jo Age: 73 yrs Sex: Female : 1950 Arrival Date: 12/15/2023 Time: 22:14 Bed 3 Private MD: Diagnosis: Chest pain, unspecified Presentation: 12/14 22:14 Chief complaint: Patient states: i have been having chest pains that come and go since bm8 . It s a pressure and its like someone is pushing on my chest. Coronavirus screen: At this time, the client does not indicate any symptoms associated with coronavirus-19. Ebola Screen: Patient negative for fever greater than or equal to 101.5 degrees Fahrenheit, and additional compatible Ebola Virus Disease symptoms Patient denies exposure to infectious person. Patient denies travel to an Ebola-affected area in the 21 days before illness onset. No symptoms or risks identified at this time. Initial Sepsis Screen: Does the patient meet any 2 criteria? No. Patient's initial sepsis screen is negative. Does the patient have a suspected source of infection? No. Patient's initial sepsis screen is negative. Risk Assessment: Do you want to hurt yourself or someone else? Patient reports no desire to harm self or others. Onset of symptoms was December 13, 2023 at 15:00. 22:14 Method Of Arrival: Ambulatory bm8 22:14 Acuity: ALEIDA 2 bm8 Triage Assessment: 22:14 General: Appears distressed, uncomfortable, Behavior is calm, cooperative, appropriate bm8 for age. Pain: Complains of pain in chest Pain does not radiate. Pain currently is 8 out of 10 on a pain scale. Quality of pain is described as pressure. EENT: No deficits noted. No signs and/or symptoms were reported regarding the EENT system. Neuro: No deficits noted. Level of Consciousness is awake, alert, obeys commands, Oriented to person, place, time, situation, Appropriate for age. Cardiovascular: Reports chest pain, Heart tones S1 S2 present Capillary refill < 3 seconds Patient's skin is warm and dry. Respiratory: Airway is patent Trachea midline Respiratory effort is even, unlabored, Respiratory pattern is regular, symmetrical, Breath sounds are clear bilaterally. GI: No signs and/or symptoms were reported involving the gastrointestinal system. : No signs and/or symptoms were reported regarding the genitourinary system. Derm: No signs and/or symptoms reported regarding the dermatologic system. Musculoskeletal: No signs and/or symptoms reported regarding the musculoskeletal system. Historical: - Allergies: 22:31 Amoxicillin; bm8 22:31 Cipro PO; bm8 22:31 GRAPEFRUIT; bm8 22:31 peanuts; bm8 22:31 PECANS; bm8 22:31 QUINOLONES; bm8 22:31 Tea; bm8 22:31 Strawberries; bm8 - Home Meds: 22:31 amlodipine 5 mg tab 1 tab once daily for Hypertension [Active]; atorvastatin 20 mg Oral bm8 tab 1 tab once daily for Hyperlipidemia [Active]; doxycycline hyclate 50 mg Oral cap 1 cap once daily for bacterial infection of the eyes [Active]; metformin 500 mg Oral tab 1 tab 2 times per day for Type 2 Diabetes Mellitus [Active]; montelukast 10 mg Oral tab 1 tab once daily for Maintenance Therapy for Asthma [Active]; pantoprazole 40 mg Oral TbEC 1 tab once daily for Heartburn [Active]; paroxetine HCl 20 mg Oral tab 1 tab once daily [Active]; spironolactone 25 mg Oral tab 1 tab once daily [Active]; topiramate 50 mg Oral tab 1 tab 3 times per day for Migraine Prevention [Active]; Zyrtec 10 mg Oral tab 2 tabs once daily for Seasonal Allergic Rhinitis [Active]; Sumatriptan Sub-Q for migraine [Active]; carvedilol 3.125 mg oral tablet [Active]; meclizine 25 mg Oral tablet [Active]; docusate sodium 100 mg Oral capsule 3 times per day [Active]; - PMHx: 22:31 Diabetes - NIDDM; Hyperlipidemia; Hypertension; bm8 - PSHx: 22:31 section; Tonsillectomy; Cholecystectomy; tubal ligation; left ankle; cataracts bm8 Left and Right; - Immunization history:: Adult Immunizations up to date, Client reports receiving the 2nd dose of the Covid vaccine. - Infectious Disease History:: Denies. - Social history:: Smoking status: Patient denies any tobacco usage or history of. - Family history:: not pertinent. Screenin:30 [facility] Fall Risk Assessment (Adult) History of falling in the last 3 months, vc1 including since admission No falls in past 3 months (0 pts) Confusion or Disorientation No (0 pts) Intoxicated or Sedated No (0 pts) Impaired Gait No (0 pts) Mobility Assist Device Used No (0 pt) Altered Elimination No (0 pt) Score/Fall Risk Level 0 - 2 = Low Risk Oriented to surroundings, Maintained a safe environment, Educated pt \T\ family on fall prevention, incl call for assistance when getting out of bed. Abuse screen: Denies threats or abuse. Nutritional screening: No deficits noted. Tuberculosis screening: No symptoms or risk factors identified. Assessment: 22:24 General: Appears in no apparent distress. uncomfortable, Behavior is cooperative, vc1 anxious. Pain: Complains of pain in chest Pain radiates to left arm Pain currently is 5 out of 10 on a pain scale. Quality of pain is described as pressure, radiating, Pain began 2-3 days ago. Is intermittent, Noted to be grimacing. Neuro: Level of Consciousness is awake, alert, obeys commands, Oriented to person, place, time, situation, Appropriate for age. Cardiovascular: Heart tones S1 S2 Capillary refill < 3 seconds Patient's skin is warm and dry. Rhythm is sinus bradycardia. Respiratory: Airway is patent Respiratory effort is even, unlabored, Respiratory pattern is regular, symmetrical, Breath sounds are clear bilaterally. GI: Abdomen is round non-distended, obese, Bowel sounds present X 4 quads. Abd is soft and non tender. : No deficits noted. No signs and/or symptoms were reported regarding the genitourinary system. 12/15 01:04 Reassessment: Patient appears in no apparent distress at this time. Patient and/or vc1 family updated on plan of care and expected duration. Pain level reassessed. Patient is alert, oriented x 3, equal unlabored respirations, skin warm/dry/pink. Patient states symptoms have improved. 02:12 Reassessment: Patient appears in no apparent distress at this time. Patient and/or pc2 family updated on plan of care and expected duration. Pain level reassessed. Patient is alert, oriented x 3, equal unlabored respirations, skin warm/dry/pink. Patient states symptoms have improved. Pain: Pain currently is 1 out of 10 on a pain scale. 05:05 Reassessment: Patient appears in no apparent distress at this time. No changes from vc1 previously documented assessment. Patient and/or family updated on plan of care and expected duration. Pain level reassessed. Patient is alert, oriented x 3, equal unlabored respirations, skin warm/dry/pink. Vital Signs: 12/14 22:14 BP 219 / 96; Pulse 68; Resp 20; Temp 97.8; Pulse Ox 98% ; Weight 88.45 kg; Height 5 ft. bm8 1 in. ; Pain 8/10; 22:58 BP 174 / 88; Pulse 61; Resp 15; Pulse Ox 96% ; vc1 23:46 BP 140 / 68; Pulse 60; Resp 18; Pulse Ox 97% on R/A; pc2 12/15 00:17 Pain 7/10; pc2 01:05 BP 152 / 70; Pulse 56; Resp 11; Pulse Ox 97% ; vc1 02:00 BP 157 / 72; Pulse 55; Resp 18; Pulse Ox 98% on R/A; Pain 1/10; pc2 03:00 BP 132 / 61; Pulse 57; Resp 13; Pulse Ox 97% ; vc1 04:00 BP 147 / 85; Pulse 53; Resp 13; Pulse Ox 96% ; vc1 05:00 BP 143 / 75; Pulse 54; Resp 11; Pulse Ox 95% ; vc1 12/14 22:14 Body Mass Index 36.84 (88.45 kg, 154.94 cm) bm8 12/14 22:14 Pain Scale: Adult bm8 12/15 00:17 Pain Scale: Adult pc2 02:00 Pain Scale: Adult pc2 ED Course: 12/14 22:14 Arm band placed on left wrist. Patient placed in an exam room, on a stretcher, on bm8 radiographer cardiac catheterization, on pulse oximetry. EKG completed in triage. Results shown to MD. 22:16 Patient arrived in ED. [id number] 22:21 Ovidio Junior MD is Attending Physician. rt 22:29 Triage completed. bm8 22:57 XRAY Chest (1 view) In Process Unspecified. EDMS 23:00 Provided Education on: Nitro and blood pressure. vc1 23:00 O2 via room air. vc1 23:40 Inserted saline lock: 20 gauge in right antecubital area, using aseptic technique. pc2 Blood collected. 12/15 01:03 Bernarda Fierro RN is Primary Nurse. vc1 01:47 Keven Mena MD is Hospitalizing Provider. rt 05:00 Patient has correct armband on for positive identification. Bed in low position. Call vc1 light in reach. Side rails up X2. gambling monitor on. Pulse ox on. NIBP on. 05:00 No provider procedures requiring assistance completed. Patient admitted, IV remains in vc1 place. Administered Medications: 12/14 22:28 Drug: Nitroglycerin Sublingual 0.4 mg Sublingual once; every five minute if needed x3 vc1 Route: Sublingual; 23:10 Drug: Aspirin PO Chewable Tablet 243 mg PO once; 81 mg tablets x 3 Route: PO; vc1 23:45 Follow up: Response: No adverse reaction pc2 23:10 Drug: Nitroglycerin Sublingual 0.4 mg Sublingual once; every five minute if needed x3 vc1 Route: Sublingual; 12/15 05:05 Follow up: Response: Blood pressure is lowered vc1 00:15 Drug: morphine IVP or IV 2 mg IVP once over 4 mins Route: IVP; Infused Over: 4 mins; pc2 Site: right antecubital; 01:45 Follow up: Response: No adverse reaction; Marked relief of symptoms; RASS: Alert and pc2 Calm (0) Medication: 05:00 VIS not applicable for this client. vc1 Outcome: 01:47 Decision to Hospitalize by Provider. rt 05:00 Admitted to Tele accompanied by tech, via stretcher, room 414, Report called to Coretta klein received fax 05:00 Condition: good 05:00 Instructed on the need for admit, 05:07 Patient left the ED. 1 Signatures: Dispatcher [employer] EDMS Christin Jerome [email or web address] Bernarda Fierro RN RN vc1 Ovidio Junior MD MD rt Emanuel Chris, RN RN bm8 Chandrika ruiz, RN RN pc2 Corrections: (The following items were deleted from the chart) 12/14 23:34 23:09 Nitroglycerin Sublingual 0.4 mg Sublingual vc1 vc1 12/15 05:05 04:00 BP 143 / 75; Pulse 54bpm; Resp 11bpm; Pulse Ox 95%; vc1 vc1
--- NOTE | 2023-12-16 01:48 | EDPHYS ---
Physician Documentation [facility] Name: Ryanne Jo Age: 73 yrs Sex: Female : 1950 Arrival Date: 12/15/2023 Time: 22:14 Bed 3 Private MD: ED Physician Ovidio Junior HPI: 12/14 23:03 This 73 yrs old Female presents to ER via Ambulatory with complaints of Dizziness, rt Chest Pain, Numbness Of Arm, Arm Pain, Headache, Jaw Pain. 23:03 Patient presents to the ED with 3 days of intermittent chest pressure. Patient states rt that today, it radiates to the jaw, left arm. She reports a lightheadedness. Denies other acute complaints at this time, symptoms are moderate in severity, no other aggravating or alleviating factors.. Historical: - Allergies: 22:31 Amoxicillin; bm8 22:31 Cipro PO; bm8 22:31 GRAPEFRUIT; bm8 22:31 peanuts; bm8 22:31 PECANS; bm8 22:31 QUINOLONES; bm8 22:31 Tea; bm8 22:31 Strawberries; bm8 - Home Meds: 22:31 amlodipine 5 mg tab 1 tab once daily for Hypertension [Active]; atorvastatin 20 mg Oral bm8 tab 1 tab once daily for Hyperlipidemia [Active]; doxycycline hyclate 50 mg Oral cap 1 cap once daily for bacterial infection of the eyes [Active]; metformin 500 mg Oral tab 1 tab 2 times per day for Type 2 Diabetes Mellitus [Active]; montelukast 10 mg Oral tab 1 tab once daily for Maintenance Therapy for Asthma [Active]; pantoprazole 40 mg Oral TbEC 1 tab once daily for Heartburn [Active]; paroxetine HCl 20 mg Oral tab 1 tab once daily [Active]; spironolactone 25 mg Oral tab 1 tab once daily [Active]; topiramate 50 mg Oral tab 1 tab 3 times per day for Migraine Prevention [Active]; Zyrtec 10 mg Oral tab 2 tabs once daily for Seasonal Allergic Rhinitis [Active]; Sumatriptan Sub-Q for migraine [Active]; carvedilol 3.125 mg oral tablet [Active]; meclizine 25 mg Oral tablet [Active]; docusate sodium 100 mg Oral capsule 3 times per day [Active]; - PMHx: 22:31 Diabetes - NIDDM; Hyperlipidemia; Hypertension; bm8 - PSHx: 22:31 section; Tonsillectomy; Cholecystectomy; tubal ligation; left ankle; cataracts bm8 Left and Right; - Immunization history:: Adult Immunizations up to date, Client reports receiving the 2nd dose of the Covid vaccine. - Infectious Disease History:: Denies. - Social history:: Smoking status: Patient denies any tobacco usage or history of. - Family history:: not pertinent. ROS: 23:03 Constitutional: Negative for fever, chills, and weight loss, Respiratory: Negative for rt shortness of breath, cough, wheezing, and pleuritic chest pain, Abdomen/GI: Negative for abdominal pain, nausea, vomiting, diarrhea, and constipation, MS/Extremity: Negative for injury and deformity, Skin: Negative for injury, rash, and discoloration, Neuro: Negative for headache, weakness, numbness, tingling, and seizure, 23:03 Cardiovascular: Positive for chest pain, Negative for edema, 23:03 Skin: Positive for 23:03 Neuro: Positive for dizziness, Negative for altered mental status, Exam: 23:03 Constitutional: This is a well developed, well nourished patient who is awake, alert, rt and in no acute distress. Head/Face: Normocephalic, atraumatic. Chest/axilla: Normal chest wall appearance and motion. Nontender with no deformity. No lesions are appreciated. Cardiovascular: Regular rate and rhythm with a normal S1 and S2. No gallops, murmurs, or rubs. Normal PMI, no JVD. No pulse deficits. Respiratory: Lungs have equal breath sounds bilaterally, clear to auscultation and percussion. No rales, rhonchi or wheezes noted. No increased work of breathing, no retractions or nasal flaring. Abdomen/GI: Soft, non-tender, with normal bowel sounds. No distension or tympany. No guarding or rebound. No evidence of tenderness throughout. Skin: Warm, dry with normal turgor. Normal color with no rashes, no lesions, and no evidence of cellulitis. MS/ Extremity: Pulses equal, no cyanosis. Neurovascular intact. Full, normal range of motion. Neuro: Awake and alert, GCS 15, oriented to person, place, time, and situation. Cranial nerves II-XII grossly intact. Motor strength 5/5 in all extremities. Sensory grossly intact. Cerebellar exam normal. Normal gait. 23:03 ECG was reviewed by the Attending Physician. Vital Signs: 22:14 BP 219 / 96; Pulse 68; Resp 20; Temp 97.8; Pulse Ox 98% ; Weight 88.45 kg; Height 5 ft. bm8 1 in. ; Pain 8/10; 22:58 BP 174 / 88; Pulse 61; Resp 15; Pulse Ox 96% ; vc1 23:46 BP 140 / 68; Pulse 60; Resp 18; Pulse Ox 97% on R/A; pc2 12/15 00:17 Pain 7/10; pc2 01:05 BP 152 / 70; Pulse 56; Resp 11; Pulse Ox 97% ; vc1 02:00 BP 157 / 72; Pulse 55; Resp 18; Pulse Ox 98% on R/A; Pain 1/10; pc2 03:00 BP 132 / 61; Pulse 57; Resp 13; Pulse Ox 97% ; vc1 04:00 BP 147 / 85; Pulse 53; Resp 13; Pulse Ox 96% ; vc1 05:00 BP 143 / 75; Pulse 54; Resp 11; Pulse Ox 95% ; vc1 12/14 22:14 Body Mass Index 36.84 (88.45 kg, 154.94 cm) bm8 12/14 22:14 Pain Scale: Adult bm8 12/15 00:17 Pain Scale: Adult pc2 02:00 Pain Scale: Adult pc2 MDM: 12/14 22:24 Patient medically screened. rt 12/15 02:34 Differential diagnosis: Acute coronary syndrome, pneumonia, pneumothorax. Data rt reviewed: vital signs, nurses notes, lab test result(s), EKG, radiologic studies. Consideration of Admission/Observation Patient was admitted/placed on observation. Management of patient was discussed with the following: Primary Care Provider: Agrees to admit. Independent interpretation of the following test(s) in the Emergency Department X-Ray: My interpretation is No pneumonia seen on interpretation of x-ray images. Care significantly affected by the following chronic conditions: Diabetes, Hypertension. Counseling: I had a detailed discussion with the patient and/or guardian regarding the historical points, exam findings, and any diagnostic results supporting the discharge/admit diagnosis, lab results, radiology results, the need for further work-up and treatment in the hospital. Response to treatment: the patient's symptoms have markedly improved after treatment. 12/14 22:37 Order name: Basic Metabolic Panel; Complete Time: 02:07 rt 12/14 22:37 Order name: CBC with Diff; Complete Time: 00:07 rt 12/14 22:37 Order name: LFT's; Complete Time: 02:07 rt 12/14 22:37 Order name: Magnesium; Complete Time: 02:07 rt 12/14 22:37 Order name: NT PRO-BNP; Complete Time: 02:07 rt 12/14 22:37 Order name: Troponin HS; Complete Time: 02:07 rt 12/14 22:37 Order name: XRAY Chest (1 view) rt 12/14 22:37 Order name: EKG; Complete Time: 22:37 rt 12/14 22:37 Order name: Cardiac monitoring; Complete Time: 23:10 rt 12/14 22:37 Order name: EKG - Nurse/Tech; Complete Time: 23:10 rt 12/14 22:37 Order name: IV Saline Lock; Complete Time: 23:10 rt 12/14 22:37 Order name: Labs collected and sent; Complete Time: 23:10 rt 12/14 22:37 Order name: O2 Per Protocol; Complete Time: 23:10 rt 12/14 22:37 Order name: O2 Sat Monitoring; Complete Time: 23:10 rt EC/29 23:03 Rate is 68 beats/min. Rhythm is regular, Normal Sinus Rhythm with No ectopy. QRS [place] rt is Normal. MD interval is normal. QRS interval is normal. QT interval is normal. No Q waves. No ST changes noted. Interpreted by me. Administered Medications: 22:28 Drug: Nitroglycerin Sublingual 0.4 mg Sublingual once; every five minute if needed x3 vc1 Route: Sublingual; 23:10 Drug: Aspirin PO Chewable Tablet 243 mg PO once; 81 mg tablets x 3 Route: PO; vc1 23:45 Follow up: Response: No adverse reaction pc2 23:10 Drug: Nitroglycerin Sublingual 0.4 mg Sublingual once; every five minute if needed x3 vc1 Route: Sublingual; 12/15 05:05 Follow up: Response: Blood pressure is lowered vc1 00:15 Drug: morphine IVP or IV 2 mg IVP once over 4 mins Route: IVP; Infused Over: 4 mins; pc2 Site: right antecubital; 01:45 Follow up: Response: No adverse reaction; Marked relief of symptoms; RASS: Alert and pc2 Calm (0) Disposition Summary: 12/16/23 01:47 Hospitalization Ordered Notes: Hospitalization Status: Observation rt Provider: Keven Mena rt Location: Telemetry/MedSurg (observation) rt Condition: Stable rt Problem: new rt Symptoms: have improved rt Bed/Room Type: Standard rt Room Assignment: 414(12/16/23 02:04) rv1 Diagnosis - Chest pain, unspecified rt Forms: - Medication Reconciliation Form rt - SBAR form rt - Leadership Thank You Letter rt Signatures: Dispatcher [employer] Bernarda Oliveira RN RN vc1 Ovidio Junior MD MD rt Vandana Marino rv1 Emanuel Chris, RN RN bm8 Chandrika ruiz, RN RN pc2 Corrections: (The following items were deleted from the chart) 02:04 01:47 rt rv1
[2023-12-16 01:51] LABS: ALT/SGPT 19 U/L (13-56); Albumin 3.4 g/dL (3.4-5.0); Albumin/Globulin Ratio 0.9 (1.1-1.8); Alkaline Phosphatase 88 U/L (45-117); Anion Gap 10.9 mEq/L (5.0-15.0); BUN Blood Urea Nitrogen 26 mg/dL (7-18); Bicarbonate 23 mEq/L (21-32); Bilirubin Total 0.4 mg/dL (0.2-1.0); Globulin 3.8 g/dL (2.3-3.5); Glomerular Filtration Rate 89 ml/min (=/>90); Glucose Level 136 mg/dL (74-106); Magnesium 2.1 mg/dL (1.6-2.4); NT PRO-BNP 89 pg/mL (<125); Potassium 3.9 mEq/L (3.5-5.1); Protein, Total 7.2 g/dL (6.4-8.2); Sodium Level 139 mEq/L (136-145); Troponin High Sensitivity 3.3 pg/mL (<58.9)
[2023-12-16 01:55] LABS: AST/SGOT < 10 U/L (15-37); Bilirubin Direct < 0.2 mg/dL (0-0.2); Bilirubin Indirect, Calculated 0.2 mg/dL (0.2-0.8)
[2023-12-16] MEDS: PNEUMOCOCCAL VACCINE 0.5 ML IMVAC ONE (08:00)
[2023-12-16] MEDS: ASPIRIN EC 81 MG TAB PO SCH (09:00)
[2023-12-16 11:07] LABS: Specific Gravity 1.014 (1.005-1.030); Urine Bilirubin NEGATIVE (Negative); Urine Blood Negative (Negative); Urine Clarity Clear (Clear); Urine Color Light-Yellow (Yellow); Urine Glucose 4+ (Over) (Negative); Urine Ketones NEGATIVE (Negative); Urine Microscopic Reflex YN NO UMIC; Urine Nitrite NEGATIVE (Negative); Urine Protein NEGATIVE (Negative); Urine Urobilinogen Normal (Normal)
[2023-12-16] MEDS: NITROGLYCERIN 0.4 MG/TAB SL ONE (12:35)
--- NOTE | 2023-12-16 13:04 | RAD REPORT ---
EXAM DESCRIPTION: Chest Single View CLINICAL HISTORY: The patient is 73 years old and is Female; CHEST PAIN TECHNIQUE: Frontal view of the chest. COMPARISON: No relevant prior studies available. FINDINGS: LUNGS: Unremarkable. No consolidation. PLEURAL SPACE: Unremarkable. No pneumothorax. HEART: Unremarkable. No cardiomegaly. MEDIASTINUM: Unremarkable. Normal mediastinal contour. BONES/JOINTS: Postsurgical change of the cervical spine is present. No acute fracture. VASCULATURE: Atherosclerosis of the aorta is present. UPPER ABDOMEN: Unremarkable as visualized. IMPRESSION: No acute cardiopulmonary process. Electronically signed by: Cherelle Holman MD 12/15/2023 11:15 PM CDT RP Due to temporary technical issues with the PACS/Fluency reporting system, reports are being signed by the in house radiologist without review as a courtesy to ensure prompt reporting. The interpreting r adiologist is fully responsible for the content of the report.
--- NOTE | 2023-12-16 15:13 | P.CNS ---
Date of Consult: 12/16/23 Chief Complaint: chest pain History of Present Illness: Patient with PMH of HTN, presented with chest pain that has been going on for the last 3 days, pressure in nature, radiate to her neck and left arm, associated with dizzy spells, no other cardiac symptoms, chest pain is pressure in nature last for fem minutes, can happen with rest or exertion. Allergies ciprofloxacin [From Cipro] Allergy (Verified 10/20/21 06:35) Itching/Hives/Rash ciprofloxacin HCl [From Cipro] Allergy (Verified 10/20/21 06:35) Itching/Hives/Rash grapefruit Allergy (Verified 10/20/21 06:35) Nausea/Vomiting latex Allergy (Verified 10/20/21 06:35) Itching/Hives/Rash peanut Allergy (Verified 10/20/21 06:35) Anaphylaxis pecan nut Allergy (Verified 10/20/21 06:35) Nausea/Vomiting Penicillins Allergy (Verified 10/20/21 06:35) Itching/Hives/Rash Quinolones Allergy (Verified 10/20/21 06:35) Itching/Hives/Rash strawberry Allergy (Verified 10/20/21 06:35) Nausea/Vomiting Amoxicillin Allergy (Uncoded 10/20/21 06:35) Itching/Hives/Rash Home Medications: RX: Atorvastatin Calcium [Lipitor*] 20 mg PO BEDTIME 10/17/21 RX: Cetirizine HCl [Zyrtec] 10 mg PO BID 10/17/21 RX: Doxycycline Monohydrate 50 mg PO DAILY 10/17/21 RX: Montelukast [Singulair*] 10 mg PO DAILY 10/17/21 RX: PARoxetine HCL [Paroxetine HCl] 20 mg PO DAILY 10/17/21 RX: Pantoprazole [Protonix Tab*] 40 mg PO DAILY 10/17/21 RX: Topiramate 50 mg PO TID 10/17/21 Amlodipine [Norvasc] 5 mg PO DAILY 12/16/23 Carvedilol [Coreg] 3.125 mg PO BID 12/16/23 Dapagliflozin/Metformin HCl [Xigduo Xr 5 mg-1,000 mg Tablet] 1 tab PO DAILY 12/16/23 Docusate [Colace Cap] 100 mg PO TID 12/16/23 RX: Meclizine HCl 25 mg PO BEDTIME 12/16/23 RX: Spironolactone 100 mg PO DAILY 12/16/23 Sumatriptan [Imitrex] 25 mg PO PRN 12/16/23 - Past Medical/Surgical History Diabetic: No -: Hypertension -: Bronchitis -: Arthritis -: cataract -: back surgery -: Tonsilectomy -: tubal Ligation -: -: left ankle surgery - Family History Mother Medical History: Diabetes Notes: Migraines Father Medical History: Heart disease, Cancer - Social History Alcohol use: No Place of Residence: Home Review of Systems 10-point ROS is otherwise unremarkable Physical Examination Temp Pulse Resp BP Pulse Ox 97.6 F 60 18 147/67 H 97 12/16/23 12:00 12/16/23 12:35 12/16/23 12:00 12/16/23 12:35 12/16/23 12:00 General: Alert, In no apparent distress HEENT: Atraumatic, PERRLA, Mucous membr. moist/pink, EOMI, Sclerae nonicteric Neck: Supple, 2+ carotid pulse no bruit, No LAD, Without JVD or thyroid abnormality Respiratory: Clear to auscultation bilaterally, Normal air movement Cardiovascular: Regular rate/rhythm, Normal S1 S2 Gastrointestinal: Normal bowel sounds, No tenderness Musculoskeletal: No tenderness Integumentary: No rashes Neurological: Normal gait, Normal speech, Normal tone, Normal affect Lymphatics: No axilla or inguinal lymphadenopathy Laboratory Data (last 24 hrs) 12/15/23 12/15/23 23:40 23:40 WBC 7.70 Hgb 14.8 Hct 44.5 Plt Count 366 Sodium 139 Potassium 3.9 BUN 26 H Creatinine 0.72 Glucose 136 H Magnesium 2.1 Total Bilirubin 0.4 AST < 10 L ALT 19 Alkaline Phosphatase 88 - Problems (1) Unstable angina Current Visit: Yes Status: Acute Plan: Patient symptoms are concerning for unstable angina, with risk factors including HTN, HLD, Coronary angiogram in am, keep NPO after midnight ASA 81 mg daily Lipitor 40 mg daily continue therapeutic lovenox. get echo. (2) HTN (hypertension) Current Visit: Yes Status: Acute Plan: resume patient home medications Coreg 3.125 mg po BID Losartan 25 mg daily (3) HLD (hyperlipidemia) Current Visit: Yes Status: Acute Plan: increase lipitor to 40 mg daily.
[2023-12-16] MEDS ORDERED: SUMATRIPTAN 50 MG PO SCH (16:15)
--- NOTE | 2023-12-16 16:38 | P.SSS ---
Patient History Date of Service: 12/16/23 Reason for admission: chest pain History of Present Illness: CATE IS A DIABETIC WITH HTN AND OBESITY. SHE HAS HAD CHEST PAIN STARTING ABOUT 4 DAYS AGO. PAIN IS AT REST AND RADIATES TO JOHANNE JAW. PAIN IS ALWAYS THERE FOR 4 DAYS AND OFF AND ON IT GETS WORSE WITH NO EXERSION. I ASKED NURSE TO START LOVENOX SC BID AND ASA [address] VEGA TO SEEHER HAS PAIN CHARACTER IS CLASSICAL EXCEPT IT IS NOT EXERSIONAL. HE WILL DO CATH IN AM. AFTER LOVENOX THE PAIN IS MILDER PER PATIENT. Allergies ciprofloxacin [From Cipro] Allergy (Verified 10/20/21 06:35) Itching/Hives/Rash ciprofloxacin HCl [From Cipro] Allergy (Verified 10/20/21 06:35) Itching/Hives/Rash grapefruit Allergy (Verified 10/20/21 06:35) Nausea/Vomiting latex Allergy (Verified 10/20/21 06:35) Itching/Hives/Rash peanut Allergy (Verified 10/20/21 06:35) Anaphylaxis pecan nut Allergy (Verified 10/20/21 06:35) Nausea/Vomiting Penicillins Allergy (Verified 10/20/21 06:35) Itching/Hives/Rash Quinolones Allergy (Verified 10/20/21 06:35) Itching/Hives/Rash strawberry Allergy (Verified 10/20/21 06:35) Nausea/Vomiting Amoxicillin Allergy (Uncoded 10/20/21 06:35) Itching/Hives/Rash Home Medications: Atorvastatin Calcium [Lipitor*] 20 mg PO BEDTIME 10/17/21 Cetirizine HCl [Zyrtec] 10 mg PO BID 10/17/21 Doxycycline Monohydrate 50 mg PO DAILY 10/17/21 Montelukast [Singulair*] 10 mg PO DAILY 10/17/21 PARoxetine HCL [Paroxetine HCl] 20 mg PO DAILY 10/17/21 Pantoprazole [Protonix Tab*] 40 mg PO DAILY 10/17/21 Topiramate 50 mg PO TID 10/17/21 Amlodipine [Norvasc] 5 mg PO DAILY 12/16/23 Carvedilol [Coreg] 3.125 mg PO BID 12/16/23 Dapagliflozin/Metformin HCl [Xigduo Xr 5 mg-1,000 mg Tablet] 1 tab PO DAILY 12/16/23 Docusate [Colace Cap] 100 mg PO TID 12/16/23 Meclizine HCl 25 mg PO BEDTIME 12/16/23 Spironolactone 100 mg PO DAILY 12/16/23 Sumatriptan [Imitrex] 25 mg PO PRN 12/16/23 - Past Medical/Surgical History Has patient received pneumonia vaccine in the past: No Diabetic: No -: Hypertension -: Bronchitis -: Arthritis -: cataract -: back surgery -: Tonsilectomy -: tubal Ligation -: -: left ankle surgery - Family History Mother -: Diabetes Notes: Migraines Father -: Heart disease, Cancer - Social History Smoking Status: Never smoker Alcohol use: No Place of Residence: Home Review of Systems 10-point ROS is otherwise unremarkable General: Weakness Physical Examination - Vital Signs Temperature: 97.6 F Blood Pressure: 147/67 Pulse: 60 Respirations: 18 Pulse Ox (%): 97 - Physical Exam General: Oriented x3, Mild distress, Obese HEENT: Atraumatic, PERRLA, Mucous membr. moist/pink, EOMI, Sclerae nonicteric Neck: Supple, 2+ carotid pulse no bruit, No LAD, Without JVD or thyroid abnormality Respiratory: Clear to auscultation bilaterally, Normal air movement Cardiovascular: Regular rate/rhythm, Normal S1 S2 Gastrointestinal: Normal bowel sounds, No tenderness Musculoskeletal: No tenderness Integumentary: No rashes Neurological: Normal gait, Normal speech, Normal strength at 5/5 x4 extr, Normal tone, Normal affect Lymphatics: No axilla or inguinal lymphadenopathy - Studies Laboratory Data (last 24 hrs) 12/15/23 12/15/23 23:40 23:40 WBC 7.70 Hgb 14.8 Hct 44.5 Plt Count 366 Sodium 139 Potassium 3.9 BUN 26 H Creatinine 0.72 Glucose 136 H Magnesium 2.1 Total Bilirubin 0.4 AST < 10 L ALT 19 Alkaline Phosphatase 88 - Diagnosis (Problem(s)) (1) Diabetes mellitus with complication Current Visit: Yes Status: Chronic Plan: FS AC HS WITH SS SHE WILL BRING HOME MEDS OBSERVATION PATIENTS CAN BE CHARGED HEAVILY BY HOSPITAL SO SHE CHOSE TO BRING MEDS FROM HOME. (2) HTN (hypertension) Current Visit: Yes Status: Chronic (3) Unstable angina Current Visit: Yes Status: Acute Plan: CE NEG EKG NOT IN THE CHART YET. CATH IN AM. PAIN IS CLASSICAL FOR ANGINA. - Disposition Disposition: ROUTINE DISCHARGE
[2023-12-16] MEDS: ENOXAPARIN 100 MG/ML SYR SQ SCH (20:49)
[2023-12-16] MEDS: DOCUSATE NA 100 MG CAP PO SCH (21:00)
[2023-12-16] MEDS ORDERED: METOPROLOL XL 25 MG TAB PO SCH (21:00)
[2023-12-16] MEDS: TOPIRAMATE 25 MG TAB PO SCH (21:00)
[2023-12-16] MEDS: MECLIZINE HCL 12.5 MG TAB PO SCH (21:00)
[2023-12-16] MEDS: ATORVASTATIN 20 MG TAB PO SCH (21:00)
[2023-12-16] MEDS: carvediloL 3.125 MG TAB PO SCH (21:00)
[2023-12-17 05:22] VITALS: BMI 36.8
[2023-12-17] MEDS: AMLODIPINE 5 MG PO SCH (05:23)
[2023-12-17] MEDS ORDERED: HEPA 1000U/500MLS 2,000 UNIT/1,000 ML BAG IV ONE (05:51)
[2023-12-17] MEDS ORDERED: HEPARIN 5000 UNIT/ML 1 ML VIAL ONE (05:51)
[2023-12-17] MEDS ORDERED: HEPARIN 10,000 UNIT/10 ML VIAL IV ONE (05:51)
[2023-12-17] MEDS ORDERED: LIDOCAINE 1% 20 ML MDV ONE (05:51)
[2023-12-17] MEDS ORDERED: NITROGLYCERIN/D5W 50 MG/250 ML BTL IV ONE (05:52)
[2023-12-17] MEDS ORDERED: ATROPINE SULF 1 MG/10 ML SYR IV ONE (05:53)
[2023-12-17] MEDS ORDERED: FENTANYL CITR 100 MCG/2 ML ONE (05:53)
[2023-12-17] MEDS ORDERED: VERAPAMIL HCL 10 MG/4 ML VIAL IV ONE (05:53)
[2023-12-17] MEDS ORDERED: MIDAZOLAM HCL 2 MG/2 ML INJ ONE (05:53)
[2023-12-17] MEDS ORDERED: TICAGRELOR 90 MG TABLET PO ONE (05:53)
[2023-12-17] MEDS ORDERED: CLOPIDOGREL 75 MG TABLET ONE (05:54)
[2023-12-17] MEDS ORDERED: ASPIRIN 325 MG TAB ONE (05:54)
[2023-12-17] MEDS ORDERED: NA CHLORIDE 0.9% 500 ML ONE (07:07)
[2023-12-17] MEDS: PAROXETINE HCL 20 MG PO SCH (09:00)
[2023-12-17] MEDS: PANTOPRAZOLE 40 MG PO SCH (09:00)
[2023-12-17] MEDS: MONTELUKAST 10 MG PO SCH (09:00)
[2023-12-17] MEDS: SPIRONOLACTONE 100 MG PO SCH (09:00)
[2023-12-17] MEDS: [UNRECOGNIZED DRUG - OTHER] PO SCH (09:00)
[2023-12-17] MEDS: DAPAGLIFLOZIN PO SCH (09:00)
[2023-12-17] MEDS: METFORMIN HCL PO SCH (09:00)
--- NOTE | 2023-12-17 11:34 | P.PN ---
Subjective Date of Service: 12/17/23 Chief Complaint: chest pain Subjective: No new changes, No C/O voiced, Tolerating diet, Ambulating, Improving Review of Systems 10-point ROS is otherwise unremarkable Physical Examination - Vital Signs Temperature: 97.5 F Blood Pressure: 138/53 Pulse: 64 Respirations: 16 Pulse Ox (%): 98 - Physical Exam General: Alert, In no apparent distress HEENT: Atraumatic, PERRLA, EOMI Neck: Supple, JVD not distended Respiratory: Clear to auscultation bilaterally, Normal air movement Cardiovascular: Regular rate/rhythm, Normal S1 S2 Gastrointestinal: Normal bowel sounds, No tenderness Musculoskeletal: No tenderness Integumentary: No rashes Neurological: Normal speech, Normal tone, Normal affect Lymphatics: No axilla or inguinal lymphadenopathy - Studies Medications List Reviewed: Yes Assessment And Plan - Current Problems (Diagnosis) (1) Unstable angina Current Visit: Yes Status: Acute Plan: Patient symptoms are concerning for unstable angina, with risk factors including HTN, HLD, Coronary angiogram done and shows significant diagonal 1 disease and LAD disease, S/P PCI with two stents. ASA 81 mg daily Lipitor 40 mg daily Brilinta 90 mg po BID for 12 months (2) HTN (hypertension) Current Visit: Yes Status: Chronic Plan: resume patient home medications Coreg 3.125 mg po BID Losartan 25 mg daily (3) HLD (hyperlipidemia) Current Visit: Yes Status: Acute Plan: increase lipitor to 40 mg daily.
--- NOTE | 2023-12-17 13:15 | OP ---
Date of Procedure: 12/17/2023 Surgeon: Francisco Javier Dsouza Procedures Performed: 1. Left heart catheterization. 2. Selective coronary angiogram. 3. PCI of the LAD with Synergy 3.0 x 32 mm drug-eluting stent. 4. PCI of the diagonal with Synergy 2.5 x 12 mm drug-eluting stent. Indication For Procedure: Unstable angina. Access: Right radial, closed by TR band. Sedation Time: 60 minutes with 2 of Versed and 100 of fentanyl. Estimated Blood Loss: Less than 50 cc. Complications: None. Description Of Procedure: After risks, and benefits, and alternatives were explained to patient, patient agreed to proceed with the procedure and signed informed consent. The patient was brought back to the laboratory machinist, prepped and draped in sterile fashion and a time-out was performed. Sedation was administered. Right radial ultrasound-guided micropuncture technique, access was obtained. [place] 4.0 catheter was advanced over the J-wire to the LV cavity. LVEDP was obtained. Pullback did not show any gradient. Same catheter was used for selective coronary angiogram of the left and right coronary systems. That catheter was later exchanged for an EBU 3.0 mm guide to the left main artery. Heparin was administered. ACT was therapeutic. Her first Runthrough wire was passed into the diagonal. Second Runthrough wire was passed into the LAD. Predilation of the diagonal lesion was done with an NC 2.25 mm balloon. Next, Synergy 2.5 x 12 mm drug-eluting stent was placed across the diagonal back with 2 struts in the LAD that was crushed by a 3.0 mm NC balloon into the LAD. Next, Synergy 3.0 x 32 mm drug-eluting stent was placed across the LAD lesion. This postdilated with a 3.5 mm NC balloon. Final angiogram shows a JAZZY-3 flow in both arteries. Wire was removed. Catheter was removed over a J-wire and the sheath was removed and TR band applied. Hemostasis was achieved and the patient was moved back to recovery room in stable condition. Findings: 1. Left main; normal. 2. LAD; mid diffuse 60% disease. PCI done with Synergy 3.0 x 38 mm drug- eluting stent. 3. Diagonal; ostial to proximal 90% disease. PCI done with Synergy 2.5 x 12 mm drug-eluting stent. 4. Left circ; mild luminal irregularities. 5. RCA; mild luminal irregularities. 6. LVEDP 8 mmHg. Assessment And Plan: 1. Significant ostial to proximal diagonal disease. PCI done with Synergy 2.5 x 12 mm drug-eluting stent. 2. Significant mid LAD disease, status post PCI with Synergy 3.0 x 32 mm drug- eluting stent and mini-crush technique. Plan will be: 1. Aspirin 81 mg daily for life. 2. Brilinta 180 x1 was given in the laboratory machinist. 3. Continue Brilinta 90 mg p.o. b.i.d. for 12 months. 4. Continue aggressive medical treatment for CAD. MEME/RENA Voice ID: [id number] Report ID: [id number] LOBITO
--- NOTE | 2023-12-17 14:13 | EKG ---
Test Date: 2023-12-17 Test Time: 10:11:36 Recycling Tech: BORIS MEASUREMENT RESULTS: Intervals: Rate: 62 SD: 182 QRSD: 72 QT: 428 QTc: 434 Pledger: P: 49 SD: 182 QRS: 3 T: 60 INTERPRETIVE STATEMENTS: Normal sinus rhythm Normal ECG Compared to ECG 12/15/2023 22:27:33 Myocardial infarct finding no longer present Electronically Signed On 12-17-23 14:12:38 CDT by Сергей Walton
--- NOTE | 2023-12-17 14:17 | EKG ---
Test Date: 2023-12-15 Test Time: 22:27:33 Relay Motorman: SANTY MEASUREMENT RESULTS: Intervals: Rate: 68 RI: 170 QRSD: 84 QT: 416 QTc: 442 Bigfoot: P: 37 RI: 170 QRS: 0 T: 54 INTERPRETIVE STATEMENTS: Normal sinus rhythm Anterior infarct, age undetermined Abnormal ECG Compared to ECG 10/17/2021 13:29:38 No significant changes Electronically Signed On 12-17-23 14:14:15 CDT by Сергей Walton
[2023-12-17] MEDS: TRAMADOL HCL 50 MG TAB PO PRN (15:49)
--- NOTE | 2023-12-17 18:07 | P.PN ---
Subjective Date of Service: 12/17/23 Chief Complaint: chest pain Subjective: Improving SHE IS PAINFREE. SHE HAD CATH WITH TWO STENTS THIS AM DIAGONAL AND LAD AT [place] PER DR. VEGA. Review of Systems 10-point ROS is otherwise unremarkable General: Weakness Physical Examination - Vital Signs Temperature: 97.7 F Blood Pressure: 147/70 Pulse: 71 Respirations: 17 Pulse Ox (%): 97 - Physical Exam General: Oriented x3, Mild distress HEENT: Atraumatic, PERRLA, EOMI Neck: Supple, JVD not distended Respiratory: Clear to auscultation bilaterally, Normal air movement Cardiovascular: Regular rate/rhythm, Normal S1 S2 Gastrointestinal: Normal bowel sounds, No tenderness Musculoskeletal: No tenderness Integumentary: No rashes Neurological: Normal speech, Normal tone, Normal affect Lymphatics: No axilla or inguinal lymphadenopathy - Studies Medications List Reviewed: Yes Assessment And Plan - Current Problems (Diagnosis) (1) Diabetes mellitus with complication Current Visit: Yes Status: Chronic Plan: FS AC HS WITH SS SHE WILL BRING HOME MEDS OBSERVATION PATIENTS CAN BE CHARGED HEAVILY BY HOSPITAL SO SHE CHOSE TO BRING MEDS FROM HOME. (2) HTN (hypertension) Current Visit: Yes Status: Chronic (3) Unstable angina Current Visit: Yes Status: Acute Plan: CE NEG EKG NOT IN THE CHART YET. CATH IN AM. PAIN IS CLASSICAL FOR ANGINA. (4) Coronary artery disease due to type 2 diabetes mellitus Current Visit: Yes Status: Acute Plan: TWO STENTS PLACED DC IN AM.
[2023-12-17] MEDS: TICAGRELOR 90 MG TABLET PO SCH (20:21)
[2023-12-17 21:10] VITALS: O2SAT 97
[2023-12-18 08:46] VITALS: TEMP 97
--- NOTE | 2023-12-18 09:46 | P.PN ---
Subjective Date of Service: 12/18/23 Chief Complaint: chest pain Subjective: No new changes, No C/O voiced, Tolerating diet, Ambulating, Improving Review of Systems 10-point ROS is otherwise unremarkable Physical Examination - Vital Signs Temperature: 97.0 F Blood Pressure: 148/66 Pulse: 64 Respirations: 16 Pulse Ox (%): 91 - Physical Exam General: Alert, In no apparent distress HEENT: Atraumatic, PERRLA, EOMI Neck: Supple, JVD not distended Respiratory: Clear to auscultation bilaterally, Normal air movement Cardiovascular: Regular rate/rhythm, Normal S1 S2 Gastrointestinal: Normal bowel sounds, No tenderness Musculoskeletal: No tenderness Integumentary: No rashes Neurological: Normal speech, Normal tone, Normal affect Lymphatics: No axilla or inguinal lymphadenopathy - Studies Medications List Reviewed: Yes Assessment And Plan - Current Problems (Diagnosis) (1) Unstable angina Current Visit: Yes Status: Acute Plan: Patient symptoms are concerning for unstable angina, with risk factors including HTN, HLD, Coronary angiogram done and shows significant diagonal 1 disease and LAD disease, S/P PCI with two stents. ASA 81 mg daily Lipitor 40 mg daily Brilinta 90 mg po BID for 12 months add Imdur 30 mg daily (2) HTN (hypertension) Current Visit: Yes Status: Chronic Plan: resume patient home medications Coreg 3.125 mg po BID Losartan 25 mg daily (3) HLD (hyperlipidemia) Current Visit: Yes Status: Acute Plan: increase lipitor to 40 mg daily.
--- NOTE | 2023-12-18 12:03 | P.DS ---
Admission Date: 12/17/23 Discharge Date: 12/18/23 Disposition: ROUTINE DISCHARGE Reason for Admission: chest pain - Problems (1) Diabetes mellitus with complication Current Visit: Yes Status: Chronic (2) HTN (hypertension) Current Visit: Yes Status: Chronic (3) Unstable angina Current Visit: Yes Status: Acute (4) Coronary artery disease due to type 2 diabetes mellitus Current Visit: Yes Status: Acute Brief History of Present Illness: CATE IS A DIABETIC WITH HTN AND OBESITY. SHE HAS HAD CHEST PAIN STARTING ABOUT 4 DAYS AGO. PAIN IS AT REST AND RADIATES TO JOHANNE JAW. PAIN IS ALWAYS THERE FOR 4 DAYS AND OFF AND ON IT GETS WORSE WITH NO EXERSION. I ASKED NURSE TO START LOVENOX SC BID AND ASA [address] VEGA TO SEEHER HAS PAIN CHARACTER IS CLASSICAL EXCEPT IT IS NOT EXERSIONAL. HE WILL DO CATH IN AM. AFTER LOVENOX THE PAIN IS MILDER PER PATIENT. Hospital Course: CATE HAS HAD CHEST PAIN AT REST WITH RADIATION TO JAW AND ARM. SHE HAS TO HAVE TWO STENTS IN CORONARY ARTERIES. ONE IN LAD AND DIAGONAL. SHE CONTINUES TO HAVE PAIN. DR. VEGA IS AWARE. PAIN IS ATYPICAL AND HE HAS AGREED TO DC. SHE WILL FU AT OFFICE OF MINE AND HIS. Vital Signs/Physical Exam: Temp Pulse Resp BP Pulse Ox 97.0 F 64 16 148/66 H 91 12/18/23 09:46 12/18/23 09:46 12/18/23 09:46 12/18/23 09:46 12/18/23 09:46 Laboratory Data at Discharge: WBC 7.70 thou/uL (4.3-10.9) 12/15/23 23:40 Hgb 14.8 g/dL (12.0-15.0) 12/15/23 23:40 Hct 44.5 % (36.0-45.0) 12/15/23 23:40 Plt Count 366 thou/uL (152-406) 12/15/23 23:40 Sodium 139 mEq/L (136-145) 12/15/23 23:40 Potassium 3.9 mEq/L (3.5-5.1) 12/15/23 23:40 BUN 26 mg/dL (7-18) H 12/15/23 23:40 Creatinine 0.72 mg/dL (0.55-1.02) 12/15/23 23:40 Glucose 136 mg/dL (74-106) H 12/15/23 23:40 Magnesium 2.1 mg/dL (1.6-2.4) 12/15/23 23:40 Total Bilirubin 0.4 mg/dL (0.2-1.0) 12/15/23 23:40 AST < 10 U/L (15-37) L 12/15/23 23:40 ALT 19 U/L (13-56) 12/15/23 23:40 Alkaline Phosphatase 88 U/L (45-117) 12/15/23 23:40 Home Medications: Atorvastatin Calcium [Lipitor*] 20 mg PO BEDTIME 10/17/21 Cetirizine HCl [Zyrtec] 10 mg PO BID 10/17/21 Montelukast [Singulair*] 10 mg PO DAILY 10/17/21 PARoxetine HCL [Paroxetine HCl] 20 mg PO DAILY 10/17/21 Pantoprazole [Protonix Tab*] 40 mg PO DAILY 10/17/21 Topiramate 50 mg PO TID 10/17/21 Amlodipine [Norvasc*] 5 mg PO DAILY 12/16/23 Carvedilol [Coreg] 3.125 mg PO BID 12/16/23 Dapagliflozin/Metformin HCl [Xigduo Xr 5 mg-1,000 mg Tablet] 1 tab PO DAILY 12/16/23 Docusate [Colace Cap] 100 mg PO TID 12/16/23 Meclizine HCl 25 mg PO BEDTIME 12/16/23 Spironolactone 100 mg PO DAILY 12/16/23 Sumatriptan [Imitrex*] 25 mg PO PRN 12/16/23 Ticagrelor [Brilinta] 90 mg PO BID #60 tab 12/18/23 New Medications: Ticagrelor [Brilinta] 90 mg PO BID #60 tab Followup: Keven Mena MD [Primary Care Provider] - 1-2 Weeks
[2023-12-18 12:31] VITALS: BP 146/81
[2023-12-18] MEDS ORDERED: ENOXAPARIN 30 MG/0.3 ML SQ SCH (17:00)
== END 2023-12-18 13:11 | disposition home or self-care (01) | DRG 322 ==
LOC: ER 22:14 → ERHOLD 12-16 01:50 → 4TH 12-16 04:23 → OBSVTOIN 12-17 08:00
PROVIDERS: ADMIT Internal Medicine; ATTEND Internal Medicine
PROC: 027135Z Dilation of Coronary Artery, Two Arteries with Two Drug-eluting Intraluminal Devices, Percutaneous Approach (ICD-10-PCS; principal; 2023-12-17)
PROC: 4A023N7 Measurement of Cardiac Sampling and Pressure, Left Heart, Percutaneous Approach (ICD-10-PCS; 2023-12-17)
PROC: B2111ZZ Fluoroscopy of Multiple Coronary Arteries using Low Osmolar Contrast (ICD-10-PCS; 2023-12-17)
DX: I25.110 Atherosclerotic heart disease of native coronary artery with unstable angina pectoris (principal); I10 Essential (primary) hypertension; E78.5 Hyperlipidemia, unspecified; E11.8 Type 2 diabetes mellitus with unspecified complications; M19.90 Unspecified osteoarthritis, unspecified site; E66.9 Obesity, unspecified; J45.909 Unspecified asthma, uncomplicated; Z88.1 Allergy status to other antibiotic agents; Z98.51 Tubal ligation status; Z68.36 Body mass index [BMI] 36.0-36.9, adult; Z79.84 Long term (current) use of oral hypoglycemic drugs; Z79.02 Long term (current) use of antithrombotics/antiplatelets; Z90.49 Acquired absence of other specified parts of digestive tract; Z91.010 Allergy to peanuts; Z91.018 Allergy to other foods; Z79.899 Other long term (current) drug therapy; Z91.040 Latex allergy status
CPT/HCPCS: 36415; 71045; 76937; 80048; 80076; 81003; 82947; 83735; 83880; 84484; 85025; 85347; 90732; 93005; 93458; 96374; 99152; 99153; 99285; C1725; C1893; C9600; C9601; G0378; J0461; J1644; J1650; J2001; J2250; J2270; J3010; J7040; J8597; Q9967